=== PATIENT | male | born 1945 | race Caucasian/White ===

== ENCOUNTER 2021-12-31 14:26 | Outpatient (RCR) | payer MEDICARE, OTHER, SELFPAY | END 2022-02-01 09:29 | disposition home or self-care (01) | LOC: HO.WCC 14:26 | PROVIDERS: PCP Internal Medicine; Visit Provider Surgery | DX: I87.312 Chronic venous hypertension (idiopathic) with ulcer of left lower extremity (principal); L97.822 Non-pressure chronic ulcer of other part of left lower leg with fat layer exposed; I73.9 Peripheral vascular disease, unspecified; Z86.718 Personal history of other venous thrombosis and embolism | CPT/HCPCS: 11042; 29580; 29581; 97597; 99212; 99213 ==

== ENCOUNTER 2023-12-08 13:33 | Outpatient (AMB) | payer OTHER, SELFPAY ==
[2023-12-08 13:39] VITALS: BP 124/62; PULSE 64; O2SAT 92; BMI 28.0
--- NOTE | 2023-12-08 13:39 | MHC.OFFVIS ---
Intake Vital Signs 12/08/23 13:39 Height 6 ft 2 in Weight 218 lb 4.122 oz BMI 28.0 BP 124/62 Blood Pressure Location Lt brachial Position Sitting Pulse 64 Pulse Source Doppler Pulse Oximetry (%) 92 Oxygen Delivery Method Room Air Intake Visit Reasons: dyspnea Allergies No Known Allergies [No Known Allergies*] Allergy (Verified 12/08/23 13:41) HPI dyspnea HPI Details 78-year-old gentleman, nonsmoker, with exposure to asbestos in [place], with underlying pleural plaques, referred for evaluation of dyspnea on exertion that occurs intermittently, more so walking up stairs or hills. Patient had a CT scan at [facility] in August of 2023 showing some pleural plaques but no significant interstitial lung disease. He denies orthopnea or lower extremity edema. He has no prior personal or family history of lung disease. He does have a dog as a pet. [facility] Social History (Updated 12/08/23 @ 13:42 by Faviola Heath [facility]) Patient Tobacco Use Status: Never used Tobacco Tobacco use type: Cigarette Review of Systems Const Denies daytime sleepiness, Denies excessive sweating, Denies fatigue, Denies fever(s), Denies lethargy, Denies malaise, Denies night sweats, Denies snoring and Denies weight loss Eyes Denies blurry vision and Denies itchy eyes ENT Denies nasal congestion, Denies post nasal drip, Denies sinus pain, Denies sinus pressure and Denies other ( Thrush) Card Denies chest pain, Denies pedal edema, Denies dyspnea, Reports dyspnea on exertion, Denies orthopnea and Denies paroxysmal nocturnal dyspnea Resp Denies cough, Denies hemoptysis, Denies excessive phlegm production, Denies dyspnea, Reports dyspnea on exertion, Denies snoring and Denies wheezing GI Denies abdominal pain and Denies heartburn Musc Denies myalgias, Denies arthralgias and Denies joint swelling Skin/Breast Denies rash Neuro Denies memory loss and Denies seizure-like activity Psych Denies abnormal sleep pattern, Denies anxiety and Denies memory loss Endo Denies excessive sweating, Denies fatigue and Denies heat intolerance Alvarez/Lymph Denies easy bruising Aller/Immun Denies itchy eyes, Denies seasonal rhinorrhea and Denies wheezing Physical Exam Vital Signs: Last Vital Signs Pulse 64 12/08/23 13:39 BP 124/62 12/08/23 13:39 Pulse Ox 92 12/08/23 13:39 Oxygen Delivery Method Room Air 12/08/23 13:39 BMI result Body Mass Index 28.0 Const General: no acute distress and alert Nutritional Appearance: not obese Orientation/consciousness: Other orientation findings ( oriented) HEENT Head: Yes atraumatic Eyes General: appearance normal, both eyes and all related structures Sclerae: sclerae normal EOM: EOMs intact bilaterally Neck Neck: Yes supple Lymphatic: no lymphadenopathy noted Resp Effort & Inspection: normal respiratory effort and no use of accessory muscles Auscultation: clear to auscultation bilaterally Cardio Rate: regular rate Rhythm: regular rhythm Heart sounds: no gallops, no murmurs and no rubs Skin General skin exam: other ( warm) Extrem General: No clubbing, No cyanosis and No edema Assessment & Plan Assessment & Plan (1) Dyspnea on exertion: Code(s): R06.09 - Other forms of dyspnea Plan: Unclear etiology, may be multifactorial. Will obtain 2D echocardiogram to evaluate cardiac component. 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 Will obtain PFT for further evaluation. Coding Level of Care Code New Pt Level 4 (46959) Diagnoses Dyspnea on exertion R06.09 Asbestosis J61
== END 2023-12-08 14:10 | disposition home or self-care (01) ==
PROVIDERS: PCP Internal Medicine; Visit Provider Internal Medicine Pulmonary Disease
DX: R06.09 Other forms of dyspnea (principal); J61 Pneumoconiosis due to asbestos and other mineral fibers
CPT/HCPCS: 99204

== ENCOUNTER → 2023-12-08 13:33 | Outpatient (BNVA) | payer OTHER, SELFPAY | PROVIDERS: PCP Internal Medicine; Visit Provider Internal Medicine Pulmonary Disease | DX: R06.09 Other forms of dyspnea (principal); J61 Pneumoconiosis due to asbestos and other mineral fibers | CPT/HCPCS: 99202 ==

== ENCOUNTER 2024-01-19 08:50 | Outpatient (REF) | payer OTHER, SELFPAY ==
--- NOTE | 2020-01-19 09:10 | PFT_ITS ---
Indication: Dyspnea Spirometry [FEV1 FVC 75%; FEV1 3.14 L; FVC 4.2 L. No significant response to bronchodilators noted. Maximum voluntary ventilation 82% predicted] Lung Volumes [Total lung capacity 90% predicted] Diffusion Capacity [Diffusing capacity 94% predicted] Comparisons [none] Interpretation [No obstructive nor restrictive ventilatory defects identified. No significant response to bronchodilators noted. Normal lung volumes and normal diffusing capacity. If asthma is in the differential methacholine challenge may be helpful in assessing for hyperreactive airways. Clinical correlation warranted.] MTDD
[2024-01-19 11:25] VITALS: PULSE 68; RESP 14; O2SAT 96
== END 2024-01-19 08:51 | disposition home or self-care (01) ==
LOC: HO.RESP 08:50
PROVIDERS: PCP Internal Medicine; Visit Provider Internal Medicine Pulmonary Disease
DX: J61 Pneumoconiosis due to asbestos and other mineral fibers (principal); R06.00 Dyspnea, unspecified
CPT/HCPCS: 94010; 94640; 94727; 94729

== ENCOUNTER 2024-01-20 10:15 | Outpatient (AMB) | payer OTHER, SELFPAY ==
[2024-01-20 10:19] VITALS: BP 132/67; PULSE 59; O2SAT 95; BMI 28.6
--- NOTE | 2024-01-20 10:19 | A.OFFVIS_ITS ---
Intake Vital Signs 01/20/24 10:19 Height 6 ft 2 in Weight 222 lb 10.67 oz BMI 28.6 BP 132/67 Blood Pressure Location Lt brachial Position Sitting Pulse 59 Pulse Source Doppler Pulse Oximetry (%) 95 Oxygen Delivery Method Room Air Intake Visit Reasons: dyspnea Allergies No Known Allergies [No Known Allergies*] Allergy (Verified 01/20/24 10:23) HPI dyspnea HPI Details 78-year-old gentleman, nonsmoker, with e xposure to asbestos in [place], with underlying pleural plaques, referred for evaluation of dyspnea on exertion that occurs intermittently, more so walking up stairs or hills. Patient had a CT scan at [facility] in August of 2023 showing some pleural plaques but no significant interstitial lung disease. He denies orthopnea or lower extremity edema. He has no prior personal or family history of lung disease. He does have a dog as a pet. After the last office visit he completed his pulmonary function tests that is essentially normal. His 2D echocardiogram is still pending. [facility] Social History Patient Tobacco Use Status: Never used Tobacco Tobacco use type: Cigarette Review of Systems Const Denies daytime sleepiness, Denies excessive sweating, Denies fatigue, Denies fever(s), Denies lethargy, Denies malaise, Denies night sweats, Denies snoring and Denies weight loss Eyes Denies blurry vision and Denies itchy eyes ENT Denies nasal congestion, Denies post nasal drip, Denies sinus pain, Denies sinus pressure and Denies other ( Thrush) Card Denies chest pain, Denies pedal edema, Denies dyspnea, Reports dyspnea on exertion, Denies orthopnea and Denies paroxysmal nocturnal dyspnea Resp Denies cough, Denies hemoptysis, Denies excessive phlegm production, Denies dyspnea, Reports dyspnea on exertion, Denies snoring and Denies wheezing GI Denies abdominal pain and Denies heartburn Musc Denies myalgias, Denies arthralgias and Denies joint swelling Skin/Breast Denies rash Neuro Denies memory loss and Denies seizure-like activity Psych Denies abnormal sleep pattern, Denies anxiety and Denies memory loss Endo Denies excessive sweating, Denies fatigue and Denies heat intolerance Alvarez/Lymph Denies easy bruising Aller/Immun Denies itchy eyes, Denies seasonal rhinorrhea and Denies wheezing Physical Exam Vital Signs: Last Vital Signs Pulse 59 01/20/24 10:19 BP 132/67 01/20/24 10:19 Pulse Ox 95 01/20/24 10:19 Oxygen Delivery Method Room Air 01/20/24 10:19 BMI result Body Mass Index 28.6 Const General: no acute distress and alert Nutritional Appearance: not obese Orientation/consciousness: Other orientation findings ( oriented) HEENT Head: Yes atraumatic Eyes General: appearance normal, both eyes and all related structures Sclerae: sclerae normal EOM: EOMs intact bilaterally Neck Neck: Yes supple Lymphatic: no lymphadenopathy noted Resp Effort & Inspection: normal respiratory effort and no use of accessory muscles Auscultation: clear to auscultation bilaterally Cardio Rate: regular rate Rhythm: regular rhythm Heart sounds: no gallops, no murmurs and no rubs Skin General skin exam: other ( warm) Extrem General: No clubbing, No cyanosis and No edema Assessment & Plan Assessment & Plan (1) 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 Underlying CT chest also with no significant findings for asbestosis. Continue to monitor clinically. (2) Dyspnea on exertion: Code(s): R06.09 - Other forms of dyspnea Plan: Pulmonary workup so far is unrevealing. 2D echocardiogram is pending. If normal, will consider cardiopulmonary exercise testing versus exercise program. Coding Level of Care Code Est Pt Level 4 (50055) Diagnoses Asbestosis J61 Dyspnea on exertion R06.09
== END 2024-01-20 10:33 | disposition home or self-care (01) ==
PROVIDERS: PCP Internal Medicine; Visit Provider Internal Medicine Pulmonary Disease
DX: J61 Pneumoconiosis due to asbestos and other mineral fibers (principal); R06.09 Other forms of dyspnea
CPT/HCPCS: 99214

== ENCOUNTER → 2024-01-20 10:15 | Outpatient (BNVA) | payer OTHER, SELFPAY | PROVIDERS: PCP Internal Medicine; Visit Provider Internal Medicine Pulmonary Disease | DX: R06.09 Other forms of dyspnea (principal); J61 Pneumoconiosis due to asbestos and other mineral fibers; Z91.85 Personal history of military service | CPT/HCPCS: 99212 ==

== ENCOUNTER → 2024-01-23 09:46 | Outpatient (REF) | payer OTHER, SELFPAY ==
--- NOTE | 2024-01-23 09:48 | CA_ITS ---
Transthoracic Echocardiogram Patient (Last, First, Middle): Venkatesh Ansari R Gender: Male Date of : 1945 Age: 78 Procedure Date: 01/23/2024 Procedure Type: Transthoracic Echocardiogram Location: OP Height: 187. cm Weight: 95.26 kg BSA: 2.21 m2 Heart Rate: 53 bpm BP: 158 / 75 mmHg Verifying Specialist: NIURKA Referring MD: Edouard Arce MD Symptoms: R06.09 - Other forms of dyspnea Study Quality: Fair ECG Rhythm: Sinus Conclusions: - The left ventricular systolic function is normal. The calculated ejection fraction is 63% by biplane method. - No obvious valvular pathology seen on this study. - There is mild dilatation of the ascending aorta measuring 4.20 cm. Findings Left Ventricle Normal left ventricular cavity size. There is mildly increased left ventricular wall thickness. The left ventricular systolic function is normal. The calculated ejection fraction is 63% by biplane method. There is no evidence of regional wall motion abnormalities. Diastolic function is normal for age. LV peak GLS measurement not accurate. Right Ventricle Mildly increased right ventricular cavity size. There is normal right ventricular systolic function. Atria Both atria are normal in size. Aortic Valve There is a normal trileaflet aortic valve. There is no aortic valve stenosis. There is no aortic valve regurgitation. Mitral Valve The mitral valve appears normal. There is no mitral valve regurgitation. There is no mitral valve stenosis. Pulmonic Valve The pulmonic valve is likely normal. Tricuspid Valve Normal tricuspid valve structure. There is no tricuspid valve regurgitation. There is no evidence of pulmonary hypertension. Great Vessels There is mild dilatation of the ascending aorta measuring 4.20 cm. Venous The inferior vena cava is normal in size and collapses greater than 50% with inspiration. Pericardium/Pleural There is no evidence of pericardial effusion. Prior Study Comparison No prior study available for comparison. Recommendations, Care & Conclusions No obvious valvular pathology seen on this study. Measurements 2D Linear Measurements IVSd: 1.21 0.6-0.9/0.6-1.0 cm LVIDd: 4.34 3.9-5.3/4.2-5.9 cm LVIDd Index: 1.96 2.4-3.2/2.2-3.1 cm/m2 LVIDs: 1.90 2.0-3.6 cm LVPWd: 1.14 0.7-1.1 cm LA Diam: 4.60 2.7-3.8/3.0-4.0 cm LAIDs Index: 2.08 1.5-2.3 cm/m2 LV Mass: 226.38 67-162/88-224 g LV Mass Index: 102.43 43-95/49-115 g/m2 LVOT Diam: 2.10 3.0+(-)1.3 cm 2D Systolic Function EF 4C: 55.70 >55% EF 2C: 67.50 >55% EF BiP: 62.70 >55% Mitral Valve MV Pk E: 0.91 MV PK A: 0.57 MV Decel Time: 207.00 E/A: 1.60 E'Lateral: 8.27 E'Medial: 6.53 E/E' Med: 13.90 E/E' Lat: 11.00 PHT: 61.00 MVA PHT: 3.61 Decel Florence: 4.38 Aortic Valve AoV Pk Roberto: 1.08 AoV Mn Roberto: 0.83 AoV VTI: 0.31 AoV Pk Grad: 5.00 Aov Mn Grad: 3.00 LALITA Cont.VTI: 3.18 LVOT LVOT Pk Roberto: 1.05 LVOT Mn Roberto: 0.76 LVOT VTI: 0.28 LVOT Pk Grad: 4.00 LVOT Mn Grad: 3.00 LVOT Diam: 2.10 LVOT Area: 3.46 Diastolic Function MV Pk E: 0.91 MV Pk A: 0.57 E/A: 1.60 E'Medial: 6.53 E/E' Med: 13.90 E' Laterial: 8.27 E/E' Lat: 11.00 Right Ventricle TAPSE (mm): 23.80 TVS' Roberto: 12.80 Tricuspid Valve TR Pk Roberto: 1.75 TR Pk Grad: 12.00 RA Press: 3.00 RVSP: 15.00 Great Vessels Aorta Sinus of Valsalva: 3.80 2.0-3.5 cm Ao Asc: 4.20 2.1-3.4 cm Pulmonary Valve PV Pk Roberto: 1.07 Peak PV Grad: 5.00 Updated in Other Vendor System with Status of Final Mayo Castañeda MD electronically signed on 01/24/2024 10:43:53 AM with status of Final
== END ==
LOC: HO.CARD 09:46
PROVIDERS: PCP Internal Medicine; Visit Provider Internal Medicine Pulmonary Disease
DX: R06.09 Other forms of dyspnea (principal)
CPT/HCPCS: 93306

== ENCOUNTER → 2024-01-23 09:48 | Outpatient (BNV) | payer OTHER, SELFPAY | PROVIDERS: PCP Internal Medicine; Visit Provider Internal Medicine | DX: I77.810 Thoracic aortic ectasia (principal); R06.09 Other forms of dyspnea | CPT/HCPCS: 93306; 93356 ==

== ENCOUNTER 2024-08-08 08:54 | Outpatient (AMB) | payer OTHER, SELFPAY ==
[2024-08-08 08:55] VITALS: BMI 28.5
--- NOTE | 2024-08-08 08:55 | MHC.OFFVIS ---
Vital Signs 08/08/24 08:55 Height 6 ft 2 in Weight 222 lb BMI 28.5 Intake Visit Reasons: Right knee pain Intake Note: Venkatesh is a 79 year old male who presents with complaints of pain along the medial aspect of his right knee. The patient states that several months ago he was locking his storage unit when he twisted his right knee and had acute onset of pain along the medial aspect of his knee. Since that time his pain has gotten worse. He did undergo right total knee replacement surgery several years ago. He denies any fevers or chills. He has tried Tylenol and Celebrex which gave him mild relief. Allergies No Known Allergies [No Known Allergies*] Allergy (Verified 08/08/24 08:55) Medication List - Last Reconciled 08/08/24 by Branden Lafleur MD atorvastatin 20 mg PO DAILY celecoxib 200 mg PO DAILY chlorthalidone 25 mg PO DAILY citalopram 20 mg PO DAILY ezetimibe 10 mg PO DAILY tamsulosin 0.4 mg PO DAILY warfarin 5 mg PO DAILY PFSH Social History Patient Tobacco Use Status: Never used Tobacco Tobacco use type: Cigarette Physical Exam Vital Signs: BMI result Body Mass Index 28.5 Const Other: Well-nourished well-developed very friendly male awake alert and oriented x3 in no acute distress Extrem Other: Bilateral lower extremity examination shows good capillary refill, no skin lesions noted, normal sensation light touch Right knee examination shows that the surgical incision is well healed, no erythema, mild discomfort with range of motion from -3 degrees to 115 degrees, tenderness over his medial collateral ligament, no overlying skin lesions Results Reviewed Results Reviewed: X-rays of the patient's right knee show a total knee arthroplasty with no obvious signs of loosening, no obvious acute bony abnormalities Assessment & Plan Assessment & Plan (1) Right knee pain: Code(s): M25.561 - Pain in right knee Category: Medical (2) MCL sprain of right knee: Code(s): S83.411A - Sprain of medial collateral ligament of right knee, initial encounter Category: Medical Plan Mr. Ansari presents with right knee pain after undergoing right total knee replacement surgery several years ago of unclear etiology. Thus, I will send the patient for a CT scan of his right knee for further evaluation. I also gave him a prescription for tramadol to help with his pain in the meantime. He will continue taking Celebrex as well. I also gave the patient a prescription to go to formal physical therapy. He will contact me prior to his follow-up appointment in 6-8 weeks should any questions or concerns arise. Feel free to call me at any time should questions regarding his orthopedic management arise. I spent 21 minutes in reviewing the patient's records and imaging studies, seeing the patient and documenting in the medical record. Orders: Orders XR knee RT 3V Today M25.561 - Pain in right knee PT Evaluation and Treatment Today S83.411A - Sprain of medial collateral ligament of right knee, initial encounter CT knee RT wo IV con Today M25.561 - Pain in right knee Medications: New tramadol 50 mg PO Q12H PRN 60 tabs 0RF pain Coding Level of Care Code Est Pt Level 3 (66893) Complex EM visit Add On G2211 Diagnoses Right knee pain M25.561 MCL sprain of right knee S83.411A
== END 2024-08-08 09:34 | disposition home or self-care (01) ==
PROVIDERS: PCP Internal Medicine; Visit Provider Orthopaedic Surgery
DX: M25.561 Pain in right knee (principal); S83.411A Sprain of medial collateral ligament of right knee, initial encounter
CPT/HCPCS: 99213; G2211

== ENCOUNTER 2024-08-08 14:02 | Outpatient (REF) | payer OTHER, SELFPAY ==
--- NOTE | ~2024-08-08 | XR_ITS ---
EXAMINATION: XR KNEE, RIGHT CLINICAL INFORMATION: M25.561 - Pain in right knee COMPARISON: Radiographs 09/27/2026 TECHNIQUE: Three views of the right knee. FINDINGS: The total knee arthroplasty components are in the usual position and alignment without evidence of loosening or fracture. There is a small joint effusion. There is a chronic ossification at the tip of the patellar apex. XR/XR knee RT 3V IMPRESSION: No evidence of hardware failure or acute fracture. Small joint effusion. Small chronic ossification at the tip of the patellar apex was not present on the previous study. This may be degenerative, or a remote, ununited avulsion fracture. Electronically signed by: Jaxson Betancourt MD 09/29/2024 03:41 PM RUTHIE
== END 2024-08-08 14:03 | disposition home or self-care (01) ==
LOC: HO.HOSX 14:02
PROVIDERS: Visit Provider Orthopaedic Surgery
DX: M25.561 Pain in right knee (principal); S83.411A Sprain of medial collateral ligament of right knee, initial encounter
CPT/HCPCS: 73562; 99212

== ENCOUNTER 2024-09-24 07:44 | Outpatient (REF) | payer OTHER, SELFPAY ==
--- NOTE | ~2024-09-24 | CT_ITS ---
EXAMINATION: CT KNEE WITHOUT CONTRAST, RIGHT CLINICAL INFORMATION: Right knee pain COMPARISON: Radiographs 08/08/2024 TECHNIQUE: A noncontrast CT of the right knee is performed with sagittal and coronal reformats. This CT examination was performed using dose optimization techniques as appropriate, variously including the following: *Automated exposure control *Adjustment of mA and/or kV according to patient size (this includes techniques or standardized protocols for targeted exams where dose is matched to indication/reason for exam; i.e. extremities or head) *Use of iterative reconstruction technique DLP: 153 mGy-cm FINDINGS: There is metal artifact related to the total knee arthroplasty. However, no osteolysis is apparent to indicate loosening. The arthroplasty components are in the usual position and alignment. There is no fracture. There is a small joint effusion. There is a chronic ossification distal to the patellar apex and enthesopathy of the tibial tubercle. CT/CT knee RT wo IV con IMPRESSION: No acute osseous abnormality or evidence of loosening. Small joint effusion. Electronically signed by: Jaxson Betancourt MD 09/29/2024 03:37 PM EST
== END 2024-09-24 07:45 | disposition home or self-care (01) ==
LOC: HO.CT 07:44
PROVIDERS: PCP Internal Medicine; Visit Provider Orthopaedic Surgery
DX: M25.561 Pain in right knee (principal)
CPT/HCPCS: 73700

== ENCOUNTER 2024-10-09 11:02 | Outpatient (AMB) | payer OTHER, SELFPAY ==
--- NOTE | 2024-10-09 11:03 | MHC.OFFVIS ---
Vital Signs 10/09/24 11:04 Height 6 ft 2 in Weight 222 lb BMI 28.5 Intake Visit Reasons: Right knee pain Intake Note: Venkatesh is a 79 year old male who presents with complaints of intermittent discomfort along the medial aspect of his right knee. The patient did aggravate his knee several months ago while working on his motorcycle. He denies any fevers or chills. He does wear a knee brace which gives him fairly good relief. Allergies No Known Allergies [No Known Allergies*] Allergy (Verified 10/09/24 11:04) Medication List - Last Reconciled 10/09/24 by Branden Lafleur MD atorvastatin 20 mg PO DAILY celecoxib 200 mg PO DAILY chlorthalidone 25 mg PO DAILY citalopram 20 mg PO DAILY ezetimibe 10 mg PO DAILY tamsulosin 0.4 mg PO DAILY warfarin 5 mg PO DAILY PFSH Social History Patient Tobacco Use Status: Never used Tobacco Tobacco use type: Cigarette Physical Exam Vital Signs: BMI result Body Mass Index 28.5 Const Other: Well-nourished well-developed very friendly male awake alert and oriented x3 in no acute distress Extrem Other: Bilateral lower extremity examination shows good capillary refill, no skin lesions noted, normal sensation light touch Right knee examination shows that the surgical incision is well healed, no erythema, full active extension and flexion to 120 degrees, his patella tracks well, tenderness along his medial collateral ligament, no instability Results Reviewed Results Reviewed: CT scan of the patient's right knee shows a total knee arthroplasty in good position with no signs of loosening, no acute bony abnormalities Assessment & Plan Assessment & Plan (1) Right knee pain: Code(s): M25.561 - Pain in right knee Category: Medical Plan Mr. Ansari presents with intermittent right knee discomfort most likely due to strain of his medial collateral ligament. I had a lengthy discussion with the patient regarding the treatment options. At this point the patient's symptoms continue to improve with non operative treatments. Activity modifications were discussed at length with the patient. He will follow up with me on an as-needed basis should his symptoms not plateau at an unacceptable level over the next few months. Feel free to call me at any time should questions regarding his orthopedic management arise. I spent 20 minutes in reviewing the patient's records and imaging studies, seeing the patient and documenting in the medical record. Coding Level of Care Code Est Pt Level 3 (12560) Complex EM visit Add On G2211 Diagnoses Right knee pain M25.561
[2024-10-09 11:04] VITALS: BMI 28.5
--- OUTSIDE RECORDS SUMMARY | 2024-10-16 13:02 | XMS_ITS | Encounter Summary ---
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 This section includes the names of all active insurance providers for the patient. Insurance Provider Type of Coverage Plan Name Start of Policy Coverage End of Policy Coverage Group Number Member ID Insurance Provider's Telephone Number Policy Dowling's Name Patient's Relationship to Policy Dowling MEDICARE (WNR) MEDICARE (M) PART B Sep 07, 2010 PART B [id number] [facility] [facility] PATIENT MEDICARE (WNR) MEDICARE (M) PART A Jun 07, 2010 PART A [id number] [place] [employer] PATIENT UNICARE INCOME PROTECTIO N (INDEMNIT Y) [place] RE STATE INDEM N Sep 07, 2010 [id number] BLAISE DUMONTPIOTR SPOUSE Selected Encounter This section includes the information on record at [place] for the Encounter. Date/Time Encounter Type Encounter Description Reason Pro vider Source Dec 05, 2023 01:30 PM Outpatient Encounter PRIMARY CARE/MEDICINE IHE Encounter Template Text not used by [place] Plan of Treatment: Future Appointments (+ 6 months) and Future Tests (+/- 45 days) The Plan of Treatment section includes future care activities [facility] the [facility] [place] [facility] This section includes future appointments and future orders which are active, pending or scheduled. Future Appointments This section includes appointments that were scheduled to occur 6 months from the date of the Encounter, up to a maximum of 20 appointments. The data comes from all [place] treatment facilities. Appointment Date/Time Appointment Type Appointme nt Facility Name Dec 08, 2023 01:45 PM AM[place]ULATORY [place]ICINE [place] [facility] [place] [facility] Jan 13, 2024 09:30 AM [facility] Feb 03, 2024 02:30 PM [facility] April 04, 2024 02:30 PM AMBULATORY - REHAB MEDICIN [facility] [place] [facility] Apr 13, 2024 10:00 AM [facility] May 09, 2024 09:30 AM AMBULATORY - RE[facility]AB MEDICIN [facility] [place] [facility] May 09, 2024 10:30 AM [facility] Social History: Smoking Status (Most current) and Tobacco Use (All prior to encounter date) This section includes the most current, and the historical, smoking and tobacco- related health factors from the [place] facility where the Encounter took place. Current Smoking Status This section includes the most current smoking, or tobacco-related health factor, from the [place] facility where the Encounter took place. Date/Time Current Smoking Status Comment [place] aragon Jun 06, 2023 02:00 PM VA-TOBACCO NEVER USED [place] Encounter Notes: All associated encounter notes This section contains the clinical notes associated to the Encounter. Date/Time Encounter Note(s) Provider Source Dec 01, 2023 01:29 PM ADMINISTRATIVE NOT E: LOCAL TITLE: ADMINISTRATIVE NOTE STANDARD TITLE: ADMINISTRATIVE NOTE DATE OF NOTE: DEC 01, 2023@13:29 ENTRY DATE: DEC 01, 2023@13:29:19 AUTHOR: JENNYFER GARZA EXP COSIGNER: URGENCY: STATUS: COMPLETED This is a reminder call for your upcoming PCP appt with ROGELIO SEN and the need for a lab appointment for bloodwork prior to your upcoming appt. Fasting blood work NON fasting blood work (X)NO BLOODWORK needed for appt Bloodwork already completed Action taken: [ ] Called , left voice message [ ] Called , unable to leave voice mail [X] Spoke to /intensive care nurse to remind them of upcoming appt/bloodwork Upcoming Appointments: 12/05/2023 13:30 CWM/SO/PACT 2 12/08/2023 13:45 COM CARE-PULMONARY 10/29/2024 10:00 NHM/OPTOMETRY/MARCELA /es/ [facility] Signed: 12/01/2023 13:29 JENNYFER GARZA [place]
--- OUTSIDE RECORDS SUMMARY | 2024-10-16 13:02 | XMS_ITS ---
Author Name [facility] [place] Organization [place] Address [address] [place] [address] Care Team Providers Care Manager Search Name Role Phone KERON NASH Primary Care Provider Catalina adan Insurance Providers: All historical and current Section [...] PART B Sep 07, 2010 PART B [id number] PARTH DUMONT PHEN PATIENT MEDICARE (WNR) MEDICARE (M) PART A Jun 07, 2010 PART A [id number] [phone] [id number] JULIA,PARTH PHEN PATIENT UNICARE INCOME PROTECTIO N (INDEMNIT Y) [place] RE STATE INDEM N Sep 07, 2010 [id number] BLAISE DUMONT SPOUSE Selected Encounter This section includes the information on record at [place] for the Encounter. Date/Time Encounter Type Encounter Description Reason Provider Source Nov 01, 2023 09:16 AM FIT SPECTACLES MULTIFOCAL OPTOMETRY ICD-10-CM Z46.0 Encounter for fit/adjst of spectacles and contact lenses COCO MEDRANO Encounter Template Text not used by [place] Assessments - Encounter Diagnoses This section includes the primary and secondary diagnoses documented for the Encounter. Date/Time Primary/Secondary Diagnosis Diagnosis Name Provider Source Nov 01, 2023 09:16 AM PRIMARY Encounter for fit/adjst of spectacles and contact lenses JIMENA WANG [facility] Plan of Treatment: Future Appointments (+ 6 months) and Future Tests (+/- 45 days) The Plan of Treatment section includes future care activities for the [facility] [place] [facility] This section includes future appointments and future orders which are active, pending or scheduled. Future Appointments This section includes appointments that were scheduled to occur 6 months from the date of the Encounter, up to a maximum of 20 appointments. The data comes from all [place] treatment facilities. Appointment Date/Time Appointment Type Appointme nt Facility Name Nov 18, 2023 02:00 PM AMBULATORY - MEDICINE [facility] Dec 08, 2023 01:45 PM AMBULATORY MEDICINE [facility] Jan 13, 2024 09:30 AM AM[facility]ULATORY - MEDICINE [facility] Feb 03, 2024 02:30 PM AMBULATORY - MEDICINE [facility] April 04, 2024 02:30 PM AMBULATORY - REHAB MEDICIN E [facility] Apr 13, 2024 10:00 AM AMBULATORY - MEDICINE [facility] Encounter Notes: All associated encounter notes This section contains the clinical notes associated to the Encounter. Date/Time Encounter Note(s) Provider Source Nov 01, 2023 09:16 AM OPTOMETRY NOTE: LOCAL TITLE: OPTOMETRY NOTE STANDARD TITLE: OPTOMETRY NOTE DATE OF NOTE: NOV 01, 2023@09:16 ENTRY DATE: NOV 01, 2023@09:16:30 AUTHOR: AMY JOSHI EXP COSIGNER: URGENCY: STATUS: COMPLETED OPTOMETRY NOTE Has ADDENDA prog clear The quote provided below is for informational purposes only. Please verify prior to the creation of a purchase order. DENISSE DUMONT 3780 RX INFORMATION OD +3.75 -1.00 X115 Add:+2.50 Pzm:0.00 Dir: Prz2:0.00 Dir2: OS +3.25 -1.00 X64 Add:+2.50 Pzm:0.00 Dir: Prz2:0.00 Dir2: FITTING INFORMATION FPD: NPD: [place]:R:33.5 L:35.0 SEG HT:R:25 L:25 Tint:None Shade:None VA Billable Items FRAME: BIG BEAT LOPEZ [id number] Right Lens: POLY VA PROGRESSIVE 1.586 POLY Left Lens: POLY VA PROGRESSIVE 1.586 POLY KLEAR ANTI-REFLECTIVE COATING prog sun lopez The quote provided below is for informational purposes only. Please verify prior to the creation of a purchase order. DENISSE DUMONT 3780 RX INFORMATION OD +3.75 -1.00 X115 Add:+2.50 Pzm:0.00 Dir: Prz2:0.00 Dir2: OS +3.25 -1.00 X64 Add:+2.50 Pzm:0.00 Dir: Prz2:0.00 Dir2: FITTING INFORMATION FPD: NPD: [place]:R:33.5 L:35.0 SEG HT:R:27 L:27 Tint:RAMSEY Shade:3 VA Billable Items FR[facility] [id number] Right Lens: POLY VA PROGRESSIVE 1.586 POLY Left Lens: POLY VA PROGRESSIVE 1.586 POLY KLEAR ANTI-REFLECTIVE COATING SOLID TINT /rupinder/ AMY JOSHI WOOD BUFFER Signed: 11/01/2023 09:17 Receipt Acknowledged By: 11/02/2023 13:40 /rupinder/ [facility] 11/02/2023 ADDENDUM STATUS: 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 OPT HT entered consult(s) as requested for provider signature. /rupinder/ JIMENA [facility] Signed: 11/02/2023 13:42 AMY JOSHI [facility] [place] [facility]
--- OUTSIDE RECORDS SUMMARY | 2024-10-16 13:02 | XMS_ITS ---
Author Name [facility] [place] [facility] [place] Address [address] [place] [address] Care Team Providers Care Operations Label Clerk Name Role Phone KERON NASH Primary Care [...] PART B Sep 07, 2010 PART B [id number] [id number] PARTH DUMONT PHEN PATIENT MEDICARE (WNR) MEDICARE (M) PART A Jun 07, 2010 PART A [id number] PARTH DUMONT PHEN PATIENT UNICARE INCOME PROTECTIO N (INDEMNIT Y) [place] RE STATE INDEM N Sep 07, 2010 [id number] BLAISE DUMONT SPOUSE Selected Encounter This section includes the information on record at [place] for the Encounter. Date/Time Encounter Type Encounter Description Reason Provider Source Nov 18, 2023 02:00 PM RPR&REFITG SPECT XCP APHAKIA OPTOMETRY ICD-10-CM Z46.0 Encounter for fit/adjst of spectacles and contact lenses MONIKA MORRIS [facility] Encounter Template Text not used by [place] Assessments - Encounter Diagnoses This section includes the primary and secondary diagnoses documented for the Encounter. Date/Time Primary/Secondary Diagnosis Diagnosis Name Provider Source Nov 18, 2023 02:07 PM PRIMARY Encounter for fit/adjst of spectacles and contact lenses [facility]IKA [facility]ORRIS [facility] Plan of Treatment: Future Appointments (+ 6 months) and Future Tests (+/- 45 days) The Plan of Treatment section includes future care activities for the patient from all [place] treatmentfacilities. This section includes future appointments and future orders which are active, pending or scheduled. Future Appointments This section includes appointments that were scheduled to occur 6 months from the date of the Encounter, up to a maximum of 20 appointments. The data comes from all [place] treatment facilities. Appointment Date/Time Appointment Type Appointme nt Facility Name Dec 08, 2023 01:45 PM AMBULATORY - MEDICINE [facility] [place] [facility] Jan 13, 2024 09:30 AM AM[facility]ULATORY - MEDICINE [facility] Feb 03, 2024 02:30 PM AMBULATORY - MEDICINE [facility] April 04, 2024 02:30 PM AMBULATORY - REHAB MEDICIN E [place] CNTRL [facility] [place] [facility] Apr 13, 2024 10:00 AM AMBULATORY - MEDICINE [facility] May 09, 2024 09:30 AM AMBULATORY - REHAB MEDICIN E [place] [facility]L [facility] [place] [facility] May 09, 2024 10:30 AM [facility] Encounter Notes: All associated encounter notes This section contains the clinical notes associated to the Encounter. Date/Time Encounter Note(s) Provider Source Nov 18, 2023 02:07 PM OPTOMETRY NOTE: LOCAL TITLE: OPTOMETRY NOTE STANDARD TITLE: OPTOMETRY NOTE DATE OF NOTE: NOV 18, 2023@14:07 ENTRY DATE: NOV 18, 2023@14:07:32 AUTHOR: MONIKA MORRIS EXP COSIGNER: URGENCY: STATUS: COMPLETED OPT HT & OPT Student fit and adjusted 1 pair(s) of eyeglasses per patient request. /rupinder/ Monika [facility] Signed: 11/18/2023 14:07 MONIKA MORRIS CN[facility]L [facility]
--- OUTSIDE RECORDS SUMMARY | 2024-10-16 13:02 | XMS_ITS ---
Author Name [facility] [place] Organization [place] Address [address] [place] [address] Care Team Providers Care Brake Operator Heavy Duty Name Role Phone KERON NASH Primary Care [...] PART B Sep 07, 2010 PART B [id number] [id number] 2 PARTH DUMONT PHEN PATIENT MEDICARE (WNR) MEDICARE (M) PART A Jun 07, 2010 PART A [id number] PARTH DUMONT PHEN PATIENT UNICARE INCOME PROTECTIO N (INDEMNIT Y) [place] RE STATE INDEM N Sep 07, 2010 [id number] BLAISE DUMONT SPOUSE Selected Encounter This section includes the information on record at [place] for the Encounter. Date/Time Encounter Type Encounter Description Reason Provider Source Oct 28, 2023 10:00 AM EYE EXAM&TX ESTAB PT 1/>VST OPTOMETRY ICD-10-CM H25.013 Cortical age-related cataract, bilateral COCO MEDRANO [place] Encounter Template Text not used by [place] Assessments - Encounter Diagnoses This section includes the primary and secondary diagnoses documented for the Encounter. 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 This section includes future appointments and future orders which are active, pending or scheduled. Future Appointments This section includes appointments that were scheduled to occur 6 months from the date of the Encounter, up to a maximum of 20 appointments. The data comes from all [place] treatment facilities. Appointment Date/Time Appointment Type Appointme nt Facility Name Nov 18, 2023 02:00 PM AMBULATORY - MEDICINE [facility] [place] [facility] Dec 08, 2023 01:45 PM AMBULATORY - MEDICINE [facility] [place] [facility] Jan 13, 2024 09:30 AM [facility] Feb 03, 2024 02:30 PM [facility] [place] [facility] [place] April 04, 2024 02:30 PM AMBULATORY - REHAB MEDICIN E [place] [facility] [place] [facility] Apr 13, 2024 10:00 AM AMBULATORY - MEDICINE [facility] Encounter Notes: All associated encounter notes This section contains the clinical notes associated to the Encounter. Date/Time Encounter Note(s) Provider Source Oct 28, 2023 10:47 AM OPTOMETRY NOTE: LOCAL TITLE: OPTOMETRY NOTE(T) STANDARD TITLE: OPTOMETRY NOTE DATE OF NOTE: OCT 28, 2023@10:47 ENTRY DATE: OCT 28, 2023@10:47:30 AUTHOR: COCO MEDRANO EXP COSIGNER: URGENCY: STATUS: COMPLETED I saw this patient in conjunction with the student and agree to the stated findings and plan after reviewing both history and repeating bella elements of physical exam. Patient presents for initial comprehensive exam at the [place] with history of myasthenia gravis without ocular presentation. It was diagnosed about 5 years ago at [facility] and mainly involve speech and swallowing difficulty. Otherwise he denies any history of eye injury or disease. He wears PAL. No acute ocular disease was seen today. Ordered new PAL. The patient will return in 12 months or sooner if any problems arise. /rupinder/ COCO MEDRANO OD STAFF INSPECTOR BARREL Signed: 10/28/2023 10:53 COCO MEDRANO [place] [facility] [place] [facility] Oct 28, 2023 09:47 AM OPTOMETRY NOTE: LOCAL TITLE: OPTOMETRY NOTE STANDARD TITLE: OPTOMETRY NOTE DATE OF NOTE: OCT 28, 2023@09:47 ENTRY DATE: OCT 28, 2023@09:48:01 AUTHOR: MARGO ENGEL COSIGNER: COCO MEDRANO URGENCY: STATUS: COMPLETED OPTOMETRY NOTE Has ADDENDA Active problems - Computerized Problem List is the source for the followin. Interstitial lung disease 2. Exposure to potentially hazardous substance 3. HTN-Hypertension ([facility] [id number]) 4. Hyperlipidemia ([facility] [id number]) 5. Factor V Leiden mutation 6. Chronic deep venous thrombosis of lower extremity 7. Sensorineural hearing loss, bilateral 8. Tinnitus ([facility] [id number]) 9. Allergic Rhinitis ([facility] [id number]) 10. Obstructive sleep apnea Active Outpatient Medications (including Supplies): No Medications Found Allergies: Patient has answered NKA All medications including those prescribed by outside VA's, community providers, and all OTC meds were reviewed and reconciled with patient to the best of their abilities. This 78 year old MALE is seen today for routine eye exam. Chief Complaint: Vision has been getting blurry, worse at night. Difficulty with glare at night. Issue with itchiness of eyes, feels better when rubs eyes. Last Eye Exam: 2-3 years ago OHx: 1. Myasthenia gravis 2. RE and presbyopia OU 3. Cataracts OU (-) Pain: (-) TRAVIS: (+) Diplopia: intermitently, mostly due to MG. Not common (-) Flashes: (+) Floaters: more often (-) Amaurosis Fugax/Tia's: (-) Eye Injury: (-) Eye Surgery: (-) TBI FOHx: (-) Glaucoma/ARMD/Blindness Social Hx: (-) Smoker/Length of Time/PPD: Pupils: PERRL (-)APD EOMs: SAFE OU, (-)Pain/Diplopia CVF (facial, peripheral): FTFC OU Current Rx with last BCVA: OD: +3.75 -1.00 x115 20/20 OS: +3.25 -1.00 x064 20/20 Add: +2.75 DVA ( )sc ( x )cc OD: 20/20 OS: 20/25+2 Subjective Refraction: BCVA: OD: +3.75 -1.00 x115 20/20 OS: +3.25 -1.00 x064 20/25+2 Add: +2.50 All the above performed by student, reviewed by attending Anterior segment: Performed by student, repeated by attending Lids: mild dermatochalasis OU inferior Lower lid is irregular OS Conj: pinguecula T OU Sclera: white OU Cornea: mild spk OU AC: 4x4 OU deep & quiet OU Iris: flat and clear OU (-)NVI OU (-)TID OU Lens: NS +1 OU and PCC +2 OS>OD (-)PXF OU Tonometry: Goldmann Aplanation Performed by student, reviewed by attending OD 15 mmHg OS 16 mmHg Time: 10:10 am Fundus exam: Dilated: x Non dilated: Dilating Drops: 1GTT 1 % Tropicamide OU & 1GTT 2.5% Phenylephrine OU (Pt. ed. on side effects, dilation warning given and verbal consent obtained) Patient advised not to drive if they feel they have any symptoms which could affect their ability to drive safely. Patient advised not to engage in any activities which could put themselves or others at risk if they feel they have any symptoms which could affect their ability to perform those activities safely. Performed by student, repeated by attending Vit: small PVD OU C/D: 0.30/0.30 OD, 0.35/0.35 OS rim tissue is pink and healthy OU (-)NVD OU (-)drance hemes/notching OU Macula: flat and clear OU PPole: clear A/V: 2/3 OU Vessels: normal caliber OU Periph: mild degeneration inferior quadrants (-) NVE/holes/tears/detachment s 360 OU Assesment and Plan: 1. Hypermetropia, astigmatism and presbyopia Patient was educated on diagnosis. New Rx was order. Monitor yearly. 2. Combined cataracts OU Patient was educated and understanding on findings. Cataracts were not visually significant, but he was reccomended to use UV protection to avoid rapid progression. Monitor yearly. 3. Myasthenia Gravis History Patient was educated on diagnosis. Eye muscles appears stable, did not present deviation. Patient says he used prednisone for about a year and a half, hasn't had any episode ever since. Continue moniotring during next CEE. Return to Clinic 1 year or earlier PRN Education: After discussion and answering all 's questions, demonstrated and verbalized understanding of diagnosis and treatment. Yes [x] No [ ] EYE: Visual Function Reminder: Normal Vision: 20/25 or better: Unspecified disorder of refraction or accommodation (367.9). Medication Reconciliation: Outpatient: Has the patient been taking medications as documented in the EMLR? YES: The patient has been taking medications as documented in the EMLR. Essential Medication List for Review used to complete this medication reconciliation. INCLUDED IN THIS LIST: Alphabetical list of active outpatient prescriptions dispensed from this VA (local) and dispensed from another VA or [facility] facility (remote) as well as inpatient orders (local, pending and active), local clinic medications, locally documented non-VA medications, and local prescriptions that have or been discontinued in the past 90 days. - All changes in medications, including all non-VA/Herbal/OTC medications were entered into CPRS. - If there were any medications the patient should no longer take, they were discontinued. - The patient/caregiver was instructed to update this list, discard old lists, and take this list to the next appointment, whether with a VA or non-VA provider. /rupinder/ RENO PERRY OPTOMETRY STUDENT Signed: 10/28/2023 10:56 /rupinder/ COCO MEDRANO OD STAFF INSPECTOR BARREL Cosigned: 10/28/2023 11:23 11/25/2023 ADDENDUM STATUS: COMPLETED Hypermetropia, astigmatism and presbyopia is bilateral. /rupinder/ COCO MEDRANO OD STAFF INSPECTOR BARREL Signed: 11/25/2023 08:00 RENO ENGEL [facility]
--- OUTSIDE RECORDS SUMMARY | 2024-10-16 13:03 | XMS_ITS ---
Author Name [facility] [place] Organization [place] Address [address] [place] [address] Care Team Providers Care Sewage Plant Operator Name Role Phone KERON NASH Primary Care [...] PART B Sep 07, 2010 PART B [id number] PARTH DUMONT PHEN PATIENT MEDICARE (WNR) MEDICARE (M) PART A Jun 07, 2010 PART A [id number] JULIAPARTH PHEN PATIENT UNICARE INCOME PROTECTIO N (INDEMNIT Y) [place] RE STATE INDEM N Sep 07, 2010 [id number] BLAISE DUMONTPIOTR SPOUSE Selected Encounter This section includes the information on record at [place] for the Encounter. Date/Time Encounter Type Encounter Description Reason Pro vider Source Jan 20, 2024 12:00 PM Outpatient Encounter COMMUNITY CARE CONSULT IHE Encounter Template Text not used by [place] Plan of Treatment: Future Appointments (+ 6 months) and Future Tests (+/- 45 days) The Plan of Treatment section includes future care activities for the patient from all [place] treatmentfacilities. This section includes future appointments and future orders which are active, pending or scheduled. Future Appointments This section includes appointments that were scheduled to occur 6 months from the date of the Encounter, up to a maximum of 20 appointments. The data comes from all [place] treatment facilities. Appointment Date/Time Appointment Type Appointme nt Facility Name Feb 03, 2024 02:30 PM AMBULATORY - MEDICINE [facility] April 04, 2024 02:30 PM AMBULATORY - REHAB MEDICIN [facility] [place] [facility] Apr 13, 2024 10:00 AM [facility] May 09, 2024 09:30 AM AMBULATORY - REHAB MEDICIN E [facility] [place] [facility] May 09, 2024 10:30 AM AMBULATORY - REHAB MEDICIN E [facility] [place] [place] [facility] Jun 20, 2024 09:00 AM AMBULATORY - MEDICINE [facility] Jul 18, 2024 09:15 AM [facility] [place] [facility] Lab Results: +/- 30 days of the encounter This section includes the Chemistry and Hematology Lab Results on record with [place] for the patient. Radiology Reports and Pathology Reports are provided separately, in subsequent sections. Lab Results This section contains the Chemistry/Hematology Results that were resulted 30 days before or 30 daysafter the date of the Encounter. Date/Time Source Result Type Result - Unit Interpretation Reference Range Comment Jan 13, 2024 10:38 AM [facility] HEMOGLOBIN A1C PANEL Specimen Type: BLOOD Comment: Values obtained from A1C measurements can vary. For atypical A1C assays, a reported value of 7.0 could actually be between 6.72 and 7.28 if measured by a reference method. A reported value of 9.0 could actually be between 8.73 and 9.27. Ref: http://www.ngs p.org/CAPdata. asp Ordering Provider: ROGELIO SEN Report Released Date/Time: Jan 13, 2024 10:20 AM Reporting [facility] [address] [address] Performing Lab: [address] [address] HEMOGLOBIN A1C 5.4 4.0-5.6 Jan 13, 2024 10:38 AM [facility] BASIC METABOLIC PANEL (non-fasting) Spe cimen Type: SERUM No comment entered. Ordering Provider: ROGELIO SEN Report Released Date/Time: Jan 13, 2024 10:20 AM Reporting Lab: [facility] [address] [facility] [address] Performing Lab: [address] [address] UREA NITROGEN 23 mg/dL 7-25 GLUCOSE 106 mg/dL H 65-100 SODIUM 138 mmol/L 135-145 POTASSIUM 3.4 mmol/L L 3.5-5.0 CHLORIDE 98 mmol/L L 100-110 CO2 33 meq/L H 20-30 CREATININE, Serum 0.83 mg/dL 0.50-1.40 eGFR(CKD-EPI 2020) 89 mL/min >60 Jan 13, 2024 10:38 AM [facility] CBC AND DIFF (AUTO) Specimen Type: BLOOD No comment entered. Ordering Provider: ROGELIO SEN Report Released Date/Time: Jan 13, 2024 10:20 AM Reporting Lab: [facility] [address] [facility] [address] Performing Lab: [address] [address] WBC 8.45 10*3/uL 4.50-11.00 RBC 5.13 10*6/uL 4.23-5.66 HGB 15.7 g/dL 12.8-17 HCT 45.7 39.2-50.4 MCV 89.1 fL 82-99 MCHC 34.4 g/dL 30.8-35.1 PLT 220 10*3/uL 140-360 RDW-CV 12.7 12.0-16.0 [place], Abs 0.57 10*3/uL 0.30-1.10 MCH 30.6 pg 26.2-32.6 Neut % 64.9 43.7-75.8 Lymph % 25.3 14.0-42.3 [place] % 6.7 5.1-13.7 Eos % 2.2 0.4-6.8 Baso % 0.5 0.1-2.0 Neut, Abs 5.48 10*3/uL 2.20-7.60 Lymph, Abs 2.14 10*3/uL 1.00-3.20 Eos, Abs 0.19 10*3/uL 0.03-0.44 Baso, Abs 0.04 10*3/uL 0.01-0.13 Immature Gran % 0.4 0.0-0.7 Immature Gran, Abs 0.03 10*3/uL 0.00-0.06 Jan 13, 2024 10:38 AM [facility] HEPATITIS C ANTIBODY (HCV)-ARC Specimen Type: SERUM Comment: Hep C Ab: No HCV antibody detected. If recent infection is suspected or other evidence suggests HCV infection, consider HCV nucleic acid testing Ordering Provider: ROGELIO SEN Report Released Date/Time: Jan 13, 2024 10:29 AM Reporting Lab: [facility] [address] [facility] [address] Performing Lab: [address] [address] HEPATITIS C ANTIBODY NON-REACTIVE NON-REACTIV E Encounter Notes: All associated encounter notes This section contains the clinical notes associated to the Encounter. Date/Time Encounter Note(s) Provider Source Jan 20, 2024 12:00 PM NONVA CONSULT: LOCAL TITLE: COMMUNITY CARE-CONSULT RESULT NOTE STANDARD TITLE: NONVA CONSULT DATE OF NOTE: JAN 20, 2024@12:00 ENTRY DATE: APR 19, 2024@06:54:16 AUTHOR: SAMUEL JOSUE EXP COSIGNER: URGENCY: STATUS: COMPLETED VistA Imaging - Scanned Document SCANNED DOCUMENT SIGNATURE NOT REQUIRED Electronically Filed: 04/19/2024 by: SAMUEL UP [facility]
--- OUTSIDE RECORDS SUMMARY | 2024-10-16 13:03 | XMS_ITS | Encounter Summary ---
Author Name [facility] [place] [facility] [place] Address [address] [place] [address] Care Team Providers Care Oil Sales And Service Rep Name Role Phone KERON NASH Primary Care [...] PART B Sep 07, 2010 PART B [id number] PARTH DUMONT PHEN PATIENT MEDICARE (WNR) MEDICARE (M) PART A Jun 07, 2010 PART A [id number] PARTH DUMONT PHEN PATIENT UNICARE INCOME PROTECTIO N (INDEMNIT Y) [place] RE STATE INDEM N Sep 07, 2010 [id number] BLAISE DUMONT SPOUSE Selected Encounter This section includes the information on record at [place] for the Encounter. Date/Time Encounter Type Encounter Description Reason Provider Source Jan 13, 2024 09:30 AM OFFICE O/P EST HI 40 MIN PRIMARY CARE/MEDICINE ICD-10-CM D72.819 Decreased white blood cell count, unspecified ROGELIO SEN Encounter Template Text not used by VA Assessments - Encounter Diagnoses This section includes the primary and secondary diagnoses documented for the Encounter. 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 Feb 03, 2024 10:45 AM SECONDARY Chronic respiratory failure with hypoxia SEN,[facility] Feb 03, 2024 10:45 AM SECONDARY Contact with and exposure to other hazardous substances SEN,[facility] Feb 03, 2024 10:45 AM SECONDARY Essential (primary) hypertension SEN,[facility] Feb 03, 2024 10:45 AM SECONDARY Hyperlipidemia, unspecified SEN,[facility] Feb 03, 2024 10:45 AM SECONDARY [facility] Feb 03, 2024 10:45 AM SECONDARY Impaired fasting glucose [facility] Feb 03, 2024 10:45 AM SECONDARY Obstructive sleep apnea (adult) (pediatric) SEN,[facility] Feb 03, 2024 10:45 AM SECONDARY Pneumoconiosis due to asbestos and other mineral fibers SEN,[facility] Feb 03, 2024 10:45 AM SECONDARY Sensorineural hearing loss, bilateral SEN,[facility] Feb 03, 2024 10:45 AM SECONDARY Tinnitus, unspecified ear SEN,[facility] Plan of Treatment: Future Appointments (+ 6 months) and Future Tests (+/- 45 days) The Plan of Treatment section includes future care activities for the patient [facility] [place] [facility] This section includes future appointments and future orders which are active, pending or scheduled. Future Appointments This section includes appointments that were scheduled to occur 6 months from the date of the Encounter, up to a maximum of 20 appointments. The data comes from all [place] treatment facilities. Appointment Date/Time Appointment Type Appointme nt Facility Name Feb 03, 2024 02:30 PM AMBULATORY - MEDICINE [facility] April 04, 2024 02:30 PM [facility] Apr 13, 2024 10:00 AM AMBULATORY - MEDICINE [facility] May 09, 2024 09:30 AM [facility] May 09, 2024 10:30 AM [facility] [place] [facility] Jun 20, 2024 09:00 AM AMBULATORY - MEDICINE [facility] Lab Results: +/- 30 days of the encounter This section includes the Chemistry and Hematology Lab Results on record with [place] for the patient. Radiology Reports and Pathology Reports are provided separately, in subsequent sections. Lab Results This section contains the Chemistry/Hematology Results that were resulted 30 days before or 30 daysafter the date of the Encounter. Date/Time Source Result Type Result - Unit Interpretation Reference Range Comment Jan 13, 2024 10:38 AM [facility] HEMOGLOBIN A1C PANEL Specimen Type: BLOOD Comment: [...] Jan 13, 2024 10:20 AM Reporting Lab: [address] [address] Performing Lab: [address] [address] HEMOGLOBIN A1C 5.4 4.0-5.6 Jan 13, 2024 10:38 AM [facility] BASIC METABOLIC PANEL (non-fasting) Spe cimen Type: SERUM No comment entered. Ordering Provider: ROGELIO SEN Report Released Date/Time: Jan 13, 2024 10:20 AM Reporting Lab: [address] [address] Performing Lab: [address] [address] UREA NITROGEN 23 mg/dL 7-25 GLUCOSE 106 mg/dL H 65-100 SODIUM 138 mmol/L 135-145 POTASSIUM 3.4 mmol/L L 3.5-5.0 CHLORIDE 98 mmol/L L 100-110 CO2 33 meq/L H 20-30 CREATININE, Serum 0.83 mg/dL 0.50-1.40 eGFR(CKD-EPI 2020) 89 mL/min >60 Jan 13, 2024 10:38 AM [facility] CBC AND DIFF (AUTO) Specimen Type: BLOOD No comment entered. Ordering Provider: ROGELIO SEN Report Released Date/Time: Jan 13, 2024 10:20 AM Reporting Lab: [facility] [address] [facility] [facility] [address] Performing Lab: [facility] [address] [facility] [address] WBC 8.45 10*3/uL 4.50-11.00 RBC 5.13 10*6/uL 4.23-5.66 HGB 15.7 g/dL 12.8-17 HCT 45.7 39.2-50.4 MCV 89.1 fL 82-99 MCHC 34.4 g/dL 30.8-35.1 PLT 220 10*3/uL 140-360 RDW-CV 12.7 12.0-16.0 [place], Abs 0.57 10*3/uL 0.30-1.10 MCH 30.6 pg 26.2-32.6 Neut % 64.9 43.7-75.8 Lymph % 25.3 14.0-42.3 [place] % 6.7 5.1-13.7 Eos % 2.2 0.4-6.8 Baso % 0.5 0.1-2.0 Neut, Abs 5.48 10*3/uL 2.20-7.60 Lymph, Abs 2.14 10*3/uL 1.00-3.20 Eos, Abs 0.19 10*3/uL 0.03-0.44 Baso, Abs 0.04 10*3/uL 0.01-0.13 Immature Gran % 0.4 0.0-0.7 Immature Gran, Abs 0.03 10*3/uL 0.00-0.06 Jan 13, 2024 10:38 AM [facility] HEPATITIS C ANTIBODY (HCV)-ARC Specimen Type: SERUM Comment: Hep C Ab: No HCV antibody detected. If recent infection is suspected or other evidence suggests HCV infection, consider HCV nucleic acid testing Ordering Provider: ROGELIO SEN Report Released Date/Time: Jan 13, 2024 10:29 AM Reporting Lab: [facility] [address] [facility] [address] Performing Lab: [facility] [address] [facility] [facility] [address] HEPATITIS C ANTIBODY NON-REACTIVE NON-REACTIV E Vital Signs: All taken on the encounter date This section contains inpatient and outpatient Vital Signs collected on the date of the Encounter. Date/Time Temperature Pulse Blood Pressure Respiratory Rate SP02 Pain Height Weight Body Mass Index Source Jan 13, 2024 09:49 AM 98.1 62 141/62 18 96 1 74 214 28 [facility] Social History: Smoking Status (Most current) and Tobacco Use (All prior to encounter date) This section includes the most current, and the historical, smoking and tobacco- related health factors from the [place] facility where the Encounter took place. Current Smoking Status This section includes the most current smoking, or tobacco-related health factor, from the [place] facility where the Encounter took place. Date/Time Current Smoking Status Comment Facil ity Jun 06, 2023 02:00 PM [place]-TOBACCO NEVER USED [facility] Encounter Notes: All associated encounter notes This section contains the clinical notes associated to the Encounter. Date/Time Encounter Note(s) Provider Source Jan 13, 2024 10:02 AM PHYSICIAN NOTE: LOCAL TITLE: NOTE STANDARD TITLE: PHYSICIAN NOTE DATE OF NOTE: JAN 13, 2024@10:02 ENTRY DATE: JAN 13, 2024@10:02:12 AUTHOR: ROGELIO SEN COSIGNER: URGENCY: STATUS: COMPLETED NOTE Has ADDENDA PRIMARY CARE VISIT DENISSE DUMONT, is a 78 yo WHITE MALE [place] who [facility] today at the [place] [facility] TYPE OF VISIT: Face to face CHART REVIEWED, PATIENT EXAMINED. HPI: NO MEDS LISTED IN CHART NEW PATIENT TO MY CLINIC PULM DR. USHA BUENROSTRO [facility] + Asbestosis via CT Scan + service related using oxygen at night CPAP On chlorthalidone for HTN from comm pcp but peeing all the time takes med at night has h/o low K but not on replacement +prostate symptoms chronic cough seeing Dr. Arce at [facility] for Pulm denies cardiac complaints +anx but emotionally okay denies SI Home BP's WNL per vet Most Recent labs reviewed and all medications were reconciled during this visit. Service Connection/Rated Disabilities: Service Connected Disabilities with % Eligibility: SERVICE CONNECTED 50% to 100% VERIFIED Total S/C %: 50 TINNITUS 10% S/C IMPAIRED HEARING 40% S/C HEALTHCARE PROVIDERS: Dr. Braxton Arce HISTORY: PERIOD OF SERVICE - Jarvam FROM Aug TO Aug COMBAT SERVICE INDICATED: No VITAL SIGNS: Temperature 98.1 F [36.7 C] (01/13/2024 09:49) Blood Pressure 141/62 (01/13/2024 09:49) Pulse 62 (01/13/2024 09:49) Respiration 18 (01/13/2024 09:49) Pain 1 (01/13/2024 09:49) BMI BMI: 27.5 Weight 214 lb [97.07 kg] (01/13/2024 09:49) Pulse Oximetry 96% (01/13/2024 09:49) ASSISTIVE DEVICES: REVIEW OF SYSTEMS: All systems are reviewed and are otherwise negative, unless specified in the HPI. PHYSICAL EXAMINATION: General: Well-appearing, in no obvious distress. Mental Status: Alert and oriented x 3. Head: Normocephalic, atraumatic. Eyes: PERRL. EOMI. Anicteric sclerae. ENT: Moist oral mucosa. dentition Neck: Supple. FROM. No JVD. No LAD. No bruit. Thyroid unremarkable. Lungs: CTAB. ?RML rhonchi, cleared with cough. Normal chest excursion. Eupneic respirations. CV: Heart tones S1, S2. RRR. No M/G/R. No peripheral edema GI: Abdomen is soft and nontender. No palpable mass or organomegaly. Ext: No cyanosis or clubbing. No gross deformities. Neuro: CN II through XII grossly intact. Normal speech. Normal gait. Integument: Skin warm and dry. No rashes or lesions on visible areas. Psych: Normal mood and affect. Normal judgment. Cooperative with exam, follows commands. ALLERGIES: Patient has answered [facility]TE[facility] PREVENTIVE MEDICINE GOALS Advance Directive Screen AD Dec 07 Hepatitis C Testing DUE NOW Pneumococcal Conjugate Vaccine (PCV15/PCDUE NOW Influenza Immunization DUE NOW Medication Reconciliation DUE NOW COVID-19 Immunization DUE NOW Tdap Immunization DUE NOW HTN Assess for Elevated BP>=140/90 DUE NOW Herpes Zoster (Shingles) Vaccine Oct 25 RHS Screen DUE NOW ASSESSMENT/PLAN: Active problems - Computerized Problem List is the source for the followin. Leukopenia- unclear etiology Unclear if stable, check lab or test, as discussed. 2. Hypokalemia- Discussed risks and benefits of MAT (Medically Assisted Therapy), including specific medications. KCL Check level today patient verbalizes understanding of the above. 3. Asbestosis- CT Scan pos f/u Pulm Likely Service Related 4. Hypoxia- likely due to the above continue oxygen f/u Pulm 5. Interstitial lung disease-see above 6. Exposure to potentially hazardous substance++Asbestos exposure 7. HTN-Hypertension ([facility] [id number])- usually controlled however, long discussion today I rec'd that he talk to Dr. Limon about d/c'ing the Chlorthalidone due to increase urinary frequency and chronically low potassium Consider different med 8. Hyperlipidemia-controlled on atorvatatin 9. Factor V Leiden mutation- chronic anticoag with Coumadin no s/s of bleeding 10. 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 Sensorineural hearing loss, bilateral-has hearing aids 12. Tinnitus ([facility] [id number]) 13. Impaired fasting glucose: Unclear if stable, check lab or test, as discussed. 14. Obstructive sleep apnea continue CPAP and nocturnal Oxygen Total time I spent on this visit was 45 minutes and included a review of chart, labs, notes, physical exam and discussion/education of patient. FOLLOW UP: Return to clinic as noted below and/or sooner PRN UPCOMING APPOINTMENTS: 10/29/2024 10:00 NHM/OPTOMETRY/BORASKI All medications were reconciled during this visit. No barriers noted; patient understands and agrees to current treatment plan. If patient has any questions, concerns or changes in current health status he/she will call or come in to the VA. PACT TEAM INSTRUCTIONS: HTN Assess for Elevated BP>=140/90: Patient reported blood pressure Systolic BP 125 Diastolic BP 80 The patient's blood pressure is usually adequately controlled. No medication changes are indicated at this time. Comment: Managed by Dr. Limon at [facility] Hepatitis C Testing: Patient has given verbal consent for HCV antibody testing. An HCV lab test has been ordered - see orders tab. Medication Reconciliation: Outpatient: Has the patient been taking medications as documented in the EMLR? No: Discrepencies were identified. See below. Essential Medication List for Review used to complete this medication reconciliation. INCLUDED IN THIS LIST: Alphabetical list of active outpatient prescriptions dispensed from this VA (local) and dispensed from another [place] or [facility] facility (remote) as well as inpatient orders (local, pending and active), local clinic medications, locally documented non-VA medications, and local prescriptions that have or been discontinued in the past 90 days. - Discrepancies were identified, addressed, and discussed with the patient/caregiver at this encounter. Discrepancies: NO MEDS LISTED IN CHART - All changes in medications, including all non-VA/Herbal/OTC medications were entered into CPRS. - If there were any medications the patient should no longer take, they were discontinued. - The patient/caregiver was instructed to update this list, discard old lists, and take this list to the next appointment, whether with a VA or non-VA provider. /rupinder/ ROGELIO SEN MD PHYSICIAN Signed: 01/13/2024 10:38 01/29/2024 ADDENDUM STATUS: COMPLETED [place] low labs. will schedule OV this week to review. /es/ ROGELIO SEN MD PHYSICIAN Signed: 01/29/2024 11:12 ROGELIO SEN [facility] Jan 06, 2024 09:13 AM ADMINISTRATIVE NOT E: LOCAL TITLE: ADMINISTRATIVE NOTE STANDARD TITLE: ADMINISTRATIVE NOTE DATE OF NOTE: JAN 06, 2024@09:13 ENTRY DATE: JAN 06, 2024@09:13:08 AUTHOR: JENNYFER GARZA COSIGNER: URGENCY: STATUS: COMPLETED [facility] [address] [place] [phone] * DENISSE MARKO JULIA [address] [place], [place] [address] Date: JAN 06, 2024 re: This is a reminder of your upcoming PCP appt with ROGELIO SEN. Appointment Date: Jan@09:30 Appointment Type: In-person visit Fasting blood work NON fasting blood work CONFIRMED WITH THE Sincerely, Office Staff for: ROGELIO SEN Primary Care Provider [facility] [address] [place] [id number] T [phone] Upcoming Appointments: 01/13/2024 09:30 CWM/SO/PACT 2 10/29/2024 10:00 NHM/OPTOMETRY/BORASKI APPOINTMENT ABBREVIATION [place] (SPOPC OR SO = [address]) (GOPC OR GO = [address]) (NHM or NO = [facility]) (VVC - Video Call) (Tel-X Telephone Visit) (TH - Telehealth) /rupinder/ JENNYFER SUMMERS Signed: 01/06/2024 09:13 JENNYFER GARZA
--- OUTSIDE RECORDS SUMMARY | 2024-10-16 13:03 | XMS_ITS ---
Author Name [facility] [place] [facility] [place] Organization [facility] [place] Address [address] [place] [address] Care Team Providers Care Laundry Assistant Name Role Phone KERON NASH Primary Care [...] PART B Sep 07, 2010 PART B [id number] PARTH DUMONT PHEN PATIENT MEDICARE (WNR) MEDICARE (M) PART A Jun 07, 2010 PART A [id number] JULIAPARTH PHEN PATIENT UNICARE INCOME PROTECTIO N (INDEMNIT Y) [place] RE STATE INDEM N Sep 07, 2010 [id number] BLAISE DUMONTPIOTR SPOUSE Selected Encounter This section includes the information on record at [place] for the Encounter. Date/Time Encounter Type Encounter Description Reason Pro vider Source Jan 23, 2024 12:00 PM Outpatient Encounter COMMUNITY CARE CONSULT IHE Encounter Template Text not used by VA Plan of Treatment: Future Appointments (+ 6 months) and Future Tests (+/- 45 days) The Plan of Treatment section includes future care activities for the patient from all [place] treatmentfacilities. This section includes future appointments and future orders which are active, pending or scheduled. Future Appointments This section includes appointments that were scheduled to occur 6 months from the date of the Encounter, up to a maximum of 20 appointments. The data comes from all [place] treatment facilities. Appointment Date/Time Appointment Type Appointme nt Facility Name Feb 03, 2024 02:30 PM [facility]BULATORY - MEDICINE [facility] April 04, 2024 02:30 PM [facility] [facility] [place] [facility] Apr 13, 2024 10:00 AM [facility] May 09, 2024 09:30 AM AMBULATORY - RE[facility]AB MEDICIN [facility] [place] [facility] May 09, 2024 10:30 AM AMBULATORY - REHAB MEDICIN [facility] [place] [facility] Jun 20, 2024 09:00 AM AMBULATORY - MEDICINE [facility] Jul 18, 2024 09:15 AM [facility] [place] [facility] Lab Results: +/- 30 days of the encounter This section includes the Chemistry and Hematology Lab Results on record with [place] for the patient. Radiology Reports and Pathology Reports are provided separately, in subsequent sections. Lab Results This section contains the Chemistry/Hematology Results that were resulted 30 days before or 30 daysafter the date of the Encounter. Date/Time Source Result Type Result - Unit Interpretation Reference Range Comment Jan 13, 2024 10:38 AM [facility] HEMOGLOBIN A1C PANEL Specimen Type: BLOOD Comment: [...] Jan 13, 2024 10:20 AM Reporting Lab: [facility] [address] [address] Performing Lab: [address] [address] HEMOGLOBIN A1C 5.4 4.0-5.6 Jan 13, 2024 10:38 AM [facility] BASIC METABOLIC PANEL (non-fasting) Spe cimen Type: SERUM No comment entered. Ordering Provider: ROGELIO SEN Report Released Date/Time: Jan 13, 2024 10:20 AM Reporting Lab: [facility] [address] [facility] [address] Performing Lab: [address] [address] UREA NITROGEN 23 mg/dL 7-25 GLUCOSE 106 mg/dL H 65-100 SODIUM 138 mmol/L 135-145 POTASSIUM 3.4 mmol/L L 3.5-5.0 CHLORIDE 98 mmol/L L 100-110 CO2 33 meq/L H 20-30 CREATININE, Serum 0.83 mg/dL 0.50-1.40 eGFR(CKD-EPI 2020) 89 mL/min >60 Jan 13, 2024 10:38 AM [facility] CBC AND DIFF (AUTO) Specimen Type: BLOOD No comment entered. Ordering Provider: ROGELIO SEN Report Released Date/Time: Jan 13, 2024 10:20 AM Reporting Lab: [facility] [address] [facility] [address] Performing Lab: [address] [address] WBC 8.45 10*3/uL 4.50-11.00 RBC 5.13 10*6/uL 4.23-5.66 HGB 15.7 g/dL 12.8-17 HCT 45.7 39.2-50.4 MCV 89.1 fL 82-99 MCHC 34.4 g/dL 30.8-35.1 PLT 220 10*3/uL 140-360 RDW-CV 12.7 12.0-16.0 [place], Abs 0.57 10*3/uL 0.30-1.10 MCH 30.6 pg 26.2-32.6 Neut % 64.9 43.7-75.8 Lymph % 25.3 14.0-42.3 [place] % 6.7 5.1-13.7 Eos % 2.2 0.4-6.8 Baso % 0.5 0.1-2.0 Neut, Abs 5.48 10*3/uL 2.20-7.60 Lymph, Abs 2.14 10*3/uL 1.00-3.20 Eos, Abs 0.19 10*3/uL 0.03-0.44 Baso, Abs 0.04 10*3/uL 0.01-0.13 Immature Gran % 0.4 0.0-0.7 Immature Gran, Abs 0.03 10*3/uL 0.00-0.06 Jan 13, 2024 10:38 AM [facility] HEPATITIS C ANTIBODY (HCV)-ARC Specimen Type: SERUM Comment: Hep C Ab: No HCV antibody detected. If recent infection is suspected or other evidence suggests HCV infection, consider HCV nucleic acid testing Ordering Provider: ROGELIO SEN Report Released Date/Time: Jan 13, 2024 10:29 AM Reporting Lab: [facility] [address] [facility] [address] Performing Lab: [address] [address] HEPATITIS C ANTIBODY NON-REACTIVE NON-REACTIV E Encounter Notes: All associated encounter notes This section contains the clinical notes associated to the Encounter. Date/Time Encounter Note(s) Provider Source Jan 23, 2024 12:00 PM NONVA CONSULT: LOCAL TITLE: COMMUNITY CARE-CONSULT RESULT NOTE STANDARD TITLE: NONVA CONSULT DATE OF NOTE: JAN 23, 2024@12:00 ENTRY DATE: APR 19, 2024@06:59:18 AUTHOR: SAMUEL JOSUE EXP COSIGNER: URGENCY: STATUS: COMPLETED VistA Imaging - Scanned Document SCANNED DOCUMENT SIGNATURE NOT REQUIRED Electronically Filed: 04/19/2024 by: SAMUEL UP [facility]
--- OUTSIDE RECORDS SUMMARY | 2024-10-16 13:03 | XMS_ITS | Encounter Summary ---
Author Name [facility] [place] [facility] [place] [facility] [place] Address [address] [place] [address] Care Team Providers Care Prn Occupational Therapist Name Role Phone KERON NASH Primary Care [...] PART B Sep 07, 2010 PART B [id number] PARTH DUMONT PHEN PATIENT MEDICARE (WNR) MEDICARE (M) PART A Jun 07, 2010 PART A [id number] PARTH DUMONT PHEN PATIENT UNICARE INCOME PROTECTIO N (INDEMNIT Y) UNICA RE STATE INDEM N Sep 07, 2010 [id number] BLAISE DUMONT ERPIOTR SPOUSE Selected Encounter This section includes the information on record at [place] for the Encounter. Date/Time Encounter Type Encounter Description Reason Provider Source Apr 13, 2024 10:00 AM OFFICE O/P EST MOD 30 MIN PRIMARY CARE/MEDICINE ICD-10-CM H93.19 Tinnitus, unspecified ear ROGELIO SEN Encounter Template Text not used by [place] Assessments - Encounter Diagnoses This section includes the primary and secondary diagnoses documented for the Encounter. 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 May 07, 2024 02:01 PM SECONDARY Essential (primary) hypertension SEN,[facility] May 07, 2024 02:01 PM SECONDARY Hyperlipidemia, unspecified SEN,[facility] May 07, 2024 02:01 PM SECONDARY Hypokalemia SEN,[facility] May 07, 2024 02:01 PM SECONDARY Impaired fasting glucose SEN,[facility] May 07, 2024 02:01 PM SECONDARY Pain in unspecified wrist SEN,[facility] May 07, 2024 02:01 PM SECONDARY Sensorineural hearing loss, bilateral SEN,ROGELIO [facility] Plan of Treatment: Future Appointments (+ 6 months) and Future Tests (+/- 45 days) The Plan of Treatment section includes future care activities for the patient [facility] [place] [facility] This section includes future appointments and future orders which are active, pending or scheduled. Future Appointments This section includes appointments that were scheduled to occur 6 months from the date of the Encounter, up to a maximum of 20 appointments. The data comes from all [place] treatment facilities. Appointment Date/Time Appointment Type Appointme nt Facility Name May 09, 2024 09:30 AM AMBUL[facility] May 09, 2024 10:30 AM AMBULAT[facility] Jun 20, 2024 09:00 AM [facility] Jul 18, 2024 09:15 AM [place] [facility] Aug 08, 2024 09:00 AM [place] [facility] Aug 28, 2024 08:30 AM AMBULATORY - [facility] Lab Results: +/- 30 days of the encounter This section includes the Chemistry and Hematology Lab Results on record with [place] for the patient. Radiology Reports and Pathology Reports are provided separately, in subsequent sections. Lab Results This section contains the Chemistry/Hematology Results that were resulted 30 days before or 30 daysafter the date of the Encounter. Date/Time Source Result Type Result - Unit Interpretation Reference Range Comment April 03, 2024 01:13 PM [place] BASIC METABOLIC PANEL (non-fasting) Spe cimen Type: SERUM No comment entered. Ordering Provider: ROGELIO SEN Report Released Date/Time: Feb 03, 2024 03:13 PM Reporting Lab: [facility] [address] [address] Performing Lab: [facility] [address] [address] UREA NITROGEN 24 mg/dL 7-25 GLUCOSE 102 mg/dL H 65-100 SODIUM 141 mmol/L 135-145 POTASSIUM 3.9 mmol/L 3.5-5.0 CHLORIDE 107 mmol/L 100-110 CO2 25 meq/L 20-30 CREATININE, Serum 0.84 mg/dL 0.50-1.40 eGFR(CKD-EPI 2020) 89 mL/min >60 Social History: Smoking Status (Most current) and Tobacco Use (All prior to encounter date) This section includes the most current, and the historical, smoking and tobacco- related health factors from the [place] facility where the Encounter took place. Current Smoking Status This section includes the most current smoking, or tobacco-related health factor, from the [place] facility where the Encounter took place. Date/Time Current Smoking Status Comment Hudson aragon Jun 06, 2023 02:00 PM VA-TOBACCO NEVER USED [place] Radiology Reports: +/- 30 days of the encounter Radiology Reports For cases when an order for radiology services may have been completed prior to the date of the Encounter, the report list includes the Radiology Reports that were completed up to 30 days before dateof the Encounter. For cases when an order for radiology services may have been completed after the date of the Encounter, the report list also includes the Radiology Reports that were completed up to30 days after date of the Encounter. The data comes from all [place] treatment facilities. Date/Time Radiology Report Provider Source May 07, 2024 09:01 AM WRIST 3 OR MORE VIEWS(RIGHT): DENISSE DUMONT [id number] -1945 M Exm Date: MAY 07, 2024@09:01 Req Phys: ROGELIO SEN Milagros Pat Loc: [facility]/SO/PACT 2 (Req'g Loc) Img Loc: [facility]/BUILDING 1 Service: Unknown [facility] , (Case 6 COMPLETE) WRIST 3 OR MORE VIEWS(RIGHT) (RAD Detailed) CPT:13727 Reason for Study: right wrist pain Clinical History: no trauma Report Status: Verified Date Reported: MAY 09, 2024 Date Verified: MAY 09, 2024 Cloth Measurer E-Sig: Report: WRIST 3 OR MORE VIEWS(RIGHT) Comparison: None. Clinical History: right wrist pain Findings: No acute fracture, dislocation, or significant bony abnormality. Mild narrowing of the radiocarpal joint. Mild degenerative changes of the first carpometacarpal joint. Moderate degenerative changes of the first MCP.. Impression: No acute bony injury. Degenerative changes present READING PHYSICIAN: Adonay Gonzalez M.D. -[id number] 05/09/2024 13:42 PDT [facility] National Teleradiology Program [phone] (For Medical Practitioner Use Only) Attention Patients / Veterans: If you have questions or concerns about these test results, please contact your ordering provider or primary care team. Primary Diagnostic Code: NO ALERT REQUIRED Primary Interpreting Staff: RADIOLOGY,OUTSIDE SERVICE, Staff Physician / RADIOLOGY,OUTSIDE SERVICE [facility] Encounter Notes: All associated encounter notes This section contains the clinical notes associated to the Encounter. Date/Time Encounter Note(s) Provider Source Apr 27, 2024 10:09 AM ADDENDUM: LOCAL TITLE: Addendum STANDARD TITLE: ADDENDUM DATE OF NOTE: APR 27, 2024@10:09:40 ENTRY DATE: APR 27, 2024@10:09:40 AUTHOR: KERON NASH COSIGNER: URGENCY: STATUS: COMPLETED Pulmonary work-up unrevealing for etiology of exertional dyspnea. The was seen in consult by pulmonology for dyspnea on exertion on 01/20/2024, Dr. 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 Results of pulmonary function test were essentially normal. Underlying CT chest also with no significant findings for asbestosis. 2D echocardiogram showed LVEF 63% with no obvious valvular pathology. Also noted was mild dilatation of the ascending aorta measuring 4.20 cm. Given grossly normal pulmonary work-up and echocardiogram, I will order cardiopulmonary exercise testing. I called the patient to convey these findings and planned next steps. He agrees to cardiac stress testing. AMSA: Please contact the patient and schedule a 30-minute F2F appointment with me in 45 to 60 days. Thank you. /rupinder/ KERON NASH NP NURSE PRACTITIONER Signed: 04/27/2024 10:33 Receipt Acknowledged By: 04/30/2024 08:42 /rupinder/ PAMELA ALANIZ GALETON DOCUMENT CONTROL SPECIALIST --- Original Document --- 04/13/24 NOTE: PRIMARY CARE VISIT DENISSE DUMONT, is a 78 yo WHITE MALE TYPE OF VISIT: Face to face CHART REVIEWED, PATIENT EXAMINED. HPI: vs 74 217 138/72 57 95% right wrist pain intermittent...it's a click and then it goes on trying to open something Sees Dr. Limon BP's have been good k level improved on supplementation Most Recent labs reviewed and all medications were reconciled during this visit. Service Connection/Rated Disabilities: Service Connected Disabilities with % Eligibility: SERVICE CONNECTED 50% to 100% VERIFIED Total S/C %: 50 TINNITUS 10% S/C IMPAIRED HEARING 40% S/C HISTORY: PERIOD OF SERVICE - [facility] FROM Aug TO Aug COMBAT SERVICE INDICATED: No VITAL SIGNS: Temperature 97.9 F [36.6 C] (02/03/2024 14:25) Blood Pressure 134/77 (02/03/2024 14:25) Pulse 63 (02/03/2024 14:25) Respiration 18 (02/03/2024 14:25) Pain 0 (02/03/2024 14:25) BMI BMI: 28.4 Weight 220.8 lb [100.15 kg] (02/03/2024 14:25) Pulse Oximetry 96% (02/03/2024 14:25) ASSISTIVE DEVICES: REVIEW OF SYSTEMS: All systems are reviewed and are otherwise negative, unless specified in the HPI. PHYSICAL EXAMINATION: General: Well-appearing, in no obvious distress. Mental Status: Alert and oriented x 3. Head: Normocephalic, atraumatic. Eyes: PERRL. EOMI. Anicteric sclerae. ENT: Moist oral mucosa. dentition Neck: Supple. FROM. No JVD. Ext: No cyanosis or clubbing. No gross deformities. Neuro: CN II through XII grossly intact. Normal speech. Normal gait. Integument: Skin warm and dry. No rashes or lesions on visible areas. Psych: Normal mood and affect. Normal judgment. Cooperative with exam, follows commands. ALLERGIES: Patient has answered [facility] HEALTH MAINTENANCE PREVENTIVE MEDICINE GOALS Advance Directive Screen AD Dec 07 Falls & Incontinence Screen Jun 06 Pneumococcal Conjugate Vaccine (PCV15/PCDUE NOW Influenza Immunization DUE NOW Medication Reconciliation DUE NOW COVID-19 Immunization DUE NOW Tdap Immunization DUE NOW Herpes Zoster (Shingles) Vaccine Oct 25 RHS Screen DUE NOW (Optional) Whole Health Documentation DUE NOW ASSESSMENT/PLAN: Active problems - Computerized Problem List is the source for the followin. Wrist pain- ? tendonitis vs. other doubtful CTS check xray and refer to PT 2. Leukopenia- improved 3. Hypokalemia- improved on KCL 4. Impaired Fasting Glucose ([facility] [id number])- continue to focus on healthy diet and exercise 7. Interstitial lung disease- f/u pulmonary 8. HTN-Hypertension ([facility] [id number])- controlled on meds continue 10. Hyperlipidemia ([facility] 85021923)- continue current regimen 11. Factor V Leiden mutation- on coumadin 12. Chronic deep venous thrombosis of lower extremity- lifetime coumadin no s/s bleeding 13. Sensorineural hearing loss, bilateral- chronic, currently stable f/u audiology prn 14. Tinnitus ([facility] [id number])- intermittent worsening but overall stable Total time I spent on this visit was 30 minutes and included a review of chart, labs, notes, physical exam and discussion/education of patient. LAB ORDERS FOR NEXT VISIT: NURSING: PLEASE ORDER APPROPRIATE CHRONIC DISEASE LAB ORDERS FOLLOW UP: Return to clinic as noted below and/or sooner PRN UPCOMING APPOINTMENTS: 10/29/2024 10:00 NHM/OPTOMETRY/BORASKI All medications were reconciled during this visit. No barriers noted; patient understands and agrees to current treatment plan. If patient has any questions, concerns or changes in current health status he/she will call or come [facility] to the [facility]. PACT TEAM INSTRUCTIONS: Medication Reconciliation: Outpatient: Has the patient been taking medications as documented in the EMLR? YES: The patient has been taking medications as documented in the EMLR. Essential Medication List for Review used to complete this medication reconciliation. INCLUDED IN THIS LIST: Alphabetical list of active outpatient prescriptions dispensed from this [facility] (local) and dispensed from another [place] or [place] facility (remote) as well as [...] provider. /rupinder/ ROGELIO SEN MD PHYSICIAN Signed: 04/13/2024 12:43 04/27/2024 ADDENDUM STATUS: COMPLETED THIS ANTHROPOLOGY FACULTY MEMBER WAS UNABLE TO REACH LMOM TO CALL BACK ANTHROPOLOGY FACULTY MEMBER WILL TRY AGAIN NEXT WEEK /jeaneth ALANIZ ADVANCE DOCUMENT CONTROL SPECIALIST Signed: 04/27/2024 15:59 04/30/2024 ADDENDUM STATUS: COMPLETED THIS ANTHROPOLOGY FACULTY MEMBER SPOKE w/ AND IS BOOKED FOR 06/19/24 LETTER SENT /jeaneth ALANIZ ADVANCE DOCUMENT CONTROL SPECIALIST Signed: 04/30/2024 08:42 KERON NASH [place] Apr 13, 2024 10:28 AM PHYSICIAN NOTE: LOCAL TITLE: MD NOTE STANDARD TITLE: PHYSICIAN NOTE DATE OF NOTE: APR 13, 2024@10:28 ENTRY DATE: APR 13, 2024@10:28:44 AUTHOR: ROGELIO SEN EXP COSIGNER: URGENCY: STATUS: COMPLETED NOTE Has ADDENDA PRIMARY CARE VISIT DENISSE DUMONT, is a 78 yo WHITE MALE TYPE OF VISIT: Face to face CHART REVIEWED, PATIENT EXAMINED. HPI: vs 74 217 138/72 57 95% right wrist pain intermittent...it's a click and then it goes on trying to open something Sees Dr. Limon BP's have been good k level improved on supplementation Most Recent labs reviewed and all medications were reconciled during this visit. Service Connection/Rated Disabilities: Service Connected Disabilities with % Eligibility: SERVICE CONNECTED 50% to 100% VERIFIED Total S/C %: 50 TINNITUS 10% S/C IMPAIRED HEARING 40% S/C HISTORY: PERIOD OF SERVICE - [facility] FROM Aug TO Aug COMBAT SERVICE INDICATED: No VITAL SIGNS: Temperature 97.9 F [36.6 C] (02/03/2024 14:25) Blood Pressure 134/77 (02/03/2024 14:25) Pulse 63 (02/03/2024 14:25) Respiration 18 (02/03/2024 14:25) Pain 0 (02/03/2024 14:25) BMI BMI: 28.4 Weight 220.8 lb [100.15 kg] (02/03/2024 14:25) Pulse Oximetry 96% (02/03/2024 14:25) ASSISTIVE DEVICES: REVIEW OF SYSTEMS: All systems are reviewed and are otherwise negative, unless specified in the HPI. PHYSICAL EXAMINATION: General: Well-appearing, in no obvious distress. Mental Status: Alert and oriented x 3. Head: Normocephalic, atraumatic. Eyes: PERRL. EOMI. Anicteric sclerae. ENT: Moist oral mucosa. dentition Neck: Supple. FROM. No JVD. Ext: No cyanosis or clubbing. No gross deformities. Neuro: CN II through XII grossly intact. Normal speech. Normal gait. Integument: Skin warm and dry. No rashes or lesions on visible areas. Psych: Normal mood and affect. Normal judgment. Cooperative with exam, follows commands. ALLERGIES: Patient has answered [facility] HEALTH MAINTENANCE PREVENTIVE MEDICINE GOALS Advance Directive Screen AD Dec 07 Falls & Incontinence Screen Jun 06 Pneumococcal Conjugate Vaccine (PCV15/PCDUE NOW Influenza Immunization DUE NOW Medication Reconciliation DUE NOW COVID-19 Immunization DUE NOW Tdap Immunization DUE NOW Herpes Zoster (Shingles) Vaccine Oct 25 RHS Screen DUE NOW (Optional) Whole Health Documentation DUE NOW ASSESSMENT/PLAN: Active problems - Computerized Problem List is the source for the followin. Wrist pain- ? tendonitis vs. other doubtful CTS check xray and refer to PT 2. Leukopenia- improved 3. Hypokalemia- improved on KCL 4. Impaired Fasting Glucose ([facility] 188188103)- continue to focus on healthy diet and exercise 7. Interstitial lung disease- f/u pulmonary 8. HTN-Hypertension ([facility] 77164551)- controlled on meds continue 10. Hyperlipidemia ([facility] 50906439)- continue current regimen 11. Factor V Leiden mutation- on coumadin 12. Chronic deep venous thrombosis of lower extremity- lifetime coumadin no s/s bleeding 13. Sensorineural hearing loss, bilateral- chronic, currently stable f/u audiology prn 14. Tinnitus ([facility] [id number])- intermittent worsening but overall stable Total time I spent on this visit was 30 minutes and included a review of chart, labs, notes, physical exam and discussion/education of patient. LAB ORDERS FOR NEXT VISIT: NURSING: PLEASE ORDER APPROPRIATE CHRONIC DISEASE LAB ORDERS FOLLOW UP: Return to clinic as noted below and/or sooner PRN UPCOMING APPOINTMENTS: 10/29/2024 10:00 NHM/OPTOMETRY/BORASKI All medications were reconciled during this visit. No barriers noted; patient understands and agrees to current treatment plan. If patient has any questions, concerns or changes in current health status he/she will call or come in to the VA. PACT TEAM INSTRUCTIONS: Medication Reconciliation: Outpatient: Has the patient been taking medications as documented in the EMLR? YES: The patient has been taking medications as documented in the EMLR. Essential Medication List for Review used to complete this medication reconciliation. INCLUDED IN THIS LIST: Alphabetical list of active outpatient prescriptions dispensed from this [place] (local) and dispensed from another [place] or [place] facility (remote) as well as [...] with a VA or non-VA provider. /rupinder/ ROGEILO SEN MD PHYSICIAN Signed: 04/13/2024 12:43 04/27/2024 ADDENDUM STATUS: COMPLETED Pulmonary work-up unrevealing for etiology of exertional dyspnea. The was seen in consult by pulmonology for dyspnea on exertion on 01/20/2024, Dr. 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 Results of pulmonary function test were essentially normal. Underlying CT chest also with no significant findings for asbestosis. 2D echocardiogram showed LVEF 63% with no obvious valvular pathology. Also noted was mild dilatation of the ascending aorta measuring 4.20 cm. Given grossly normal pulmonary work-up and echocardiogram, I will order cardiopulmonary exercise testing. I called the patient to convey these findings and planned next steps. He agrees to cardiac stress testing. AMSA: Please contact the patient and schedule a 30-minute F2F appointment with me in 45 to 60 days. Thank you. /rupinder/ KERON NASH NP NURSE PRACTITIONER Signed: 04/27/2024 10:33 Receipt Acknowledged By: 04/30/2024 08:42 /rupinder/ PAMELA ALANIZ ADVANCE DOCUMENT CONTROL SPECIALIST 04/27/2024 ADDENDUM STATUS: COMPLETED THIS ANTHROPOLOGY FACULTY MEMBER WAS UNABLE TO REACH LMOM TO CALL BACK ANTHROPOLOGY FACULTY MEMBER WILL TRY AGAIN NEXT WEEK /jeaneth ALANIZ ADVANCE DOCUMENT CONTROL SPECIALIST Signed: 04/27/2024 15:59 04/30/2024 ADDENDUM STATUS: COMPLETED THIS ANTHROPOLOGY FACULTY MEMBER SPOKE w/ AND IS BOOKED FOR 06/19/24 LETTER SENT /rupinder/ PAMELA ALANIZ ADVANCE DOCUMENT CONTROL SPECIALIST Signed: 04/30/2024 08:42 ROGELIO SEN
--- OUTSIDE RECORDS SUMMARY | 2024-10-16 13:03 | XMS_ITS ---
Author Name [facility] [place] Address [address] [place] [address] Care Team Providers Care Academic Coach Name Role Phone KERON NASH Primary Care Provider Unavailcristobal adan Insurance Providers: All historical and current [...] PART B Sep 07, 2010 PART B [id number] PARTH DUMONT PHEN PATIENT MEDICARE (WNR) MEDICARE (M) PART A Jun 07, 2010 PART A [id number] JULIAPARTH PHEN PATIENT UNICARE INCOME PROTECTIO N (INDEMNIT Y) [place] RE STATE INDEM N Sep 07, 2010 [id number] BLAISE DUMONT SPOUSE Selected Encounter This section includes the information on record at [place] for the Encounter. Date/Time Encounter Type Encounter Description Reason Provider Source April 04, 2024 02:30 PM HEARING AID REPAIR/MODIFYIN G AUDIOLOGY ICD-10-CM Z46.1 Encounter for fitting and adjustment of hearing aid CAMINITI,LINO E IHE Encounter Template Text not used by [place] Assessments - Encounter Diagnoses This section includes the primary and secondary diagnoses documented for the Encounter. Date/Time Primary/Secondary Diagnosis Diagnosis Name Provider Source April 04, 2024 02:42 PM PRIMARY Encounter for fitting and adjustment of hearing aid LINO GARZA [facility] [place] [facility] April 04, 2024 02:42 PM SECONDARY Sensorineural hearing loss, bilateral LINO GARZA [facility] [place] [facility] Plan of Treatment: Future Appointments (+ 6 months) and Future Tests (+/- 45 days) The Plan of Treatment section includes future care activities for the [facility] [place] [facility] This section includes future appointments and future orders which are active, pending or scheduled. Future Appointments This section includes appointments that were scheduled to occur 6 months from the date of the Encounter, up to a maximum of 20 appointments. The data comes from all [place] treatment facilities. Appointment Date/Time Appointment Type Appointme nt Facility Name Apr 13, 2024 10:00 AM AMBULATORY - MEDICINE [facility] May 09, 2024 09:30 AM AMBULATORY - REHAB MEDICIN [facility] [place] [facility] May 09, 2024 10:30 AM AMBULATORY - REHAB MEDICIN [facility] [place] [facility] Jun 20, 2024 09:00 AM AMBULATORY - MEDICINE [facility] Jul 18, 2024 09:15 AM AMBULATORY - MEDICINE [place] [facility] [place] [facility] Aug 08, 2024 09:00 AM AMBULATORY - MEDICINE [place] [facility] [place] [facility] Aug 28, 2024 08:30 AM AMBULATORY - REHAB MEDICIN [facility] [place] [facility] Lab Results: +/- 30 days of the encounter This section includes the Chemistry and Hematology Lab Results on record with [place] for the patient. Radiology Reports and Pathology Reports are provided separately, in subsequent sections. Lab Results This section contains the Chemistry/Hematology Results that were resulted 30 days before or 30 daysafter the date of the Encounter. Date/Time Source Result Type Result - Unit Interpretation Reference Range Comment April 03, 2024 01:13 PM [facility] BASIC METABOLIC PANEL (non-fasting) Spe cimen Type: SERUM No comment entered. Ordering Provider: ROGELIO SEN Report Released Date/Time: Feb 03, 2024 03:13 PM Reporting Lab: [facility] [address] [address] Performing Lab: [facility] [address] [address] UREA NITROGEN 24 mg/dL 7-25 GLUCOSE 102 mg/dL H 65-100 SODIUM 141 mmol/L 135-145 POTASSIUM 3.9 mmol/L 3.5-5.0 CHLORIDE 107 mmol/L 100-110 CO2 25 meq/L 20-30 CREATININE, Serum 0.84 mg/dL 0.50-1.40 eGFR(CKD-EPI 2020) 89 mL/min >60 Encounter Notes: All associated encounter notes This section contains the clinical notes associated to the Encounter. Date/Time Encounter Note(s) Provider Source April 04, 2024 09:50 AM AUDIOLOGY E & M NO TE: [facility] TITLE: AUDIOLOGY CLINIC STANDARD TITLE: AUDIOLOGY E & M NOTE DATE OF NOTE: APRIL 04, 2024@09:50 ENTRY DATE: APRIL 04, 2024@09:50:58 AUTHOR: LINO GARZA EXP COSIGNER: URGENCY: STATUS: COMPLETED AUDIOLOGY CLINIC Has ADDENDA has a history of bilateral sensorineural hearing loss. He was seen on 04-04-24 for hearing aid follow up regarding his Phonak RICs. He reports the left hearing aid got lost at a car show. He was able to find it a couple days later but the earmold is cracked. Also, static was heard from it today. A new display designer was installed but static remains. A new left earmold was ordered with impression on file. The left aid was sent in for repair. When both arrive, should be called and scheduled for HAC. /rpuinder/ Seth WONG, [facility]-A STAFF TAILINGS DAM LABORER Signed: 04/04/2024 14:47 04/17/2024 ADDENDUM STATUS: COMPLETED called checking on the status of his hearing aids. not in the clinic as of yet. the best number to call is [phone] when they arrive /rupinder/ ANKUR ALMEIDA LEAD SAFETY PIN ASSEMBLING MACHINE OPERATOR Signed: 04/17/2024 11:11 04/18/2024 ADDENDUM STATUS: COMPLETED Repaired left hearing aid and earmold received and certified, spoke with [facility] and scheduled appointment on 04/23/2024 @ 1000 for chart picker and pairing. /rupinder/ LUDIN EUGENE [facility] Rn Flight Signed: 04/18/2024 15:30 [facility]
--- OUTSIDE RECORDS SUMMARY | 2024-10-16 13:03 | XMS_ITS ---
Author Name [facility] [place] Address [address] [place] [address] Care Team Providers Care Urban Redevelopment Specialist Name Role Phone KERON NASH Primary Care [...] PART B Sep 07, 2010 PART B [id number] PARTH DUMONT PHEN PATIENT MEDICARE (WNR) MEDICARE (M) PART A Jun 07, 2010 PART A [id number] JULIAPARTH PHEN PATIENT UNICARE INCOME PROTECTIO N (INDEMNIT Y) [place] RE STATE INDEM N Sep 07, 2010 [id number] BLAISE DUMONT SPOUSE Selected Encounter This section includes the information on record at [place] for the Encounter. Date/Time Encounter Type Encounter Description Reason Provider Source May 09, 2024 09:30 AM HEARING AID FITTING/CHECKIN G AUDIOLOGY ICD-10-CM Z46.1 Encounter for fitting and adjustment of hearing aid JERARDO GRULLON Encounter Template Text not used by [place] Assessments - Encounter Diagnoses This section includes the primary and secondary diagnoses documented for the Encounter. Date/Time Primary/Secondary Diagnosis Diagnosis Name Provider Source May 09, 2024 09:43 AM PRIMARY Encounter for fitting and adjustment of hearing aid [facility] [place] [facility] May 09, 2024 09:43 AM SECONDARY Sensorineural hearing loss, bilateral [facility] Plan of Treatment: Future Appointments (+ 6 months) and Future Tests (+/- 45 days) The Plan of Treatment section includes future care activities for the patient from all [place] [facility]. This section includes future appointments and future orders which are active, pending or scheduled. Future Appointments This section includes appointments that were scheduled to occur 6 months from the date of the Encounter, up to a maximum of 20 appointments. The data comes from all [facility]. Appointment Date/Time Appointment Type Appointme nt Facility Name Jun 20, 2024 09:00 AM AMBULATORY - MEDICINE [facility] Jul 18, 2024 09:15 AM AMBULATORY - MEDICINE [facility] [place] [facility] Aug 08, 2024 09:00 AM AMBULATORY - MEDICINE [facility] [place] [facility] Aug 28, 2024 08:30 AM AM[place]ORY [place] [facility] [facility] Oct 29, 2024 10:00 AM AM[facility]UL[facility] Radiology Reports: +/- 30 days of the [...] the Encounter. The data comes from all [facility] facilities. Date/Time Radiology Report Provider Source May 07, 2024 09:01 AM WRIST 3 OR MORE VIEWS(RIGHT): DENISSE DUMONT [id number] -1945 M Exm Date: MAY 07, 2024@09:01 Req Phys: FRANCYROGELIO Milagros Yoo Loc: CWM/SO/PACT 2 (Req'g Loc) Img Loc: [place]/BUILDING 1 Service: Unknown [facility] , (Case 6 COMPLETE) WRIST 3 OR MORE VIEWS(RIGHT) (RAD Detailed) CPT:58001 Reason for Study: right wrist pain Clinical History: no trauma Report Status: Verified Date Reported: MAY 09, 2024 Date Verified: MAY 09, 2024 Production Finisher E-Sig: Report: WRIST 3 OR MORE VIEWS(RIGHT) Comparison: None. Clinical History: right wrist pain Findings: No acute fracture, dislocation, or significant bony abnormality. Mild narrowing of the radiocarpal joint. Mild degenerative changes of the first carpometacarpal joint. Moderate degenerative changes of the first MCP.. Impression: No acute bony injury. Degenerative changes present READING PHYSICIAN: Adonay Gonzalez M.D. -[id number] 05/09/2024 13:[address] [facility] National Teleradiology Program [phone] (For Medical Practitioner Use Only) Attention Patients / Veterans: If you have questions or concerns about these test results, please contact your ordering provider or primary care team. Primary Diagnostic Code: NO ALERT REQUIRED Primary Interpreting Staff: RADIOLOGY,OUTSIDE SERVICE, Staff Physician / RADIOLOGY,OUTSIDE SERVICE [facility] Encounter Notes: All associated encounter notes This section contains the clinical notes associated to the Encounter. Date/Time Encounter Note(s) Provider Source May 09, 2024 07:36 AM AUDIOLOGY NOTE: LOCAL TITLE: AUDIOLOGY [facility] TITLE: AUDIOLOGY NOTE DATE OF NOTE: MAY 09, 2024@07:36 ENTRY DATE: MAY 09, 2024@07:36:46 AUTHOR: LUDIN EUGENE COSIGNER: JERARDO GRULLON URGENCY: STATUS: COMPLETED May 09, 2024 History/Background: was seen for a hearing aid follow up, unaccompanied. was scheduled today to tack picker his repaired left hearing aid and new left earmold. Hearing aids: Phonak AUDEO P90-R RICs Serial Numbers: [id number] Battery size: Rechargeable Date Issued: 09/24/2022 Hearing aid check: Right hearing aid was cleaned and checked. Replaced wax guard. Biologic check was good. Both hearing aids were connected to Delver, a firmware update was done and user settings were restored. Listening inspection was positive for both hearing aids. Plan: will follow up as needed. /rupinder/ LUDIN EUGENE Audiology Health Quality Control Engineering Technician Signed: 05/09/2024 09:43 /rupinder/ JERARDO GRULLON STAFF BRUSH HAND Cosigned: 05/09/2024 09:48 LUDIN EUGENE [facility]
--- OUTSIDE RECORDS SUMMARY | 2024-10-16 13:03 | XMS_ITS ---
Author Name [facility] [place] Address [address] [place] [address] Care Team Providers Care Public Health Dietitian Name Role Phone KERON NASH Primary Care [...] PART B Sep 07, 2010 PART B [id number] PARTH DUMONT PHEN PATIENT MEDICARE (WNR) MEDICARE (M) PART A Jun 07, 2010 PART A [id number] JULIAPARTH PHEN PATIENT UNICARE INCOME PROTECTIO N (INDEMNIT Y) [place] RE STATE INDEM N Sep 07, 2010 [id number] BLAISE DUMONT SPOUSE Selected Encounter This section includes the information on record at [place] for the Encounter. Date/Time Encounter Type Encounter Description Reason Pro vider Source Dec 08, 2023 12:00 PM Outpatient Encounter COMMUNITY CARE CONSULT IHE Encounter Template Text not used by [facility] Plan of Treatment: Future Appointments (+ 6 months) and Future Tests (+/- 45 days) The Plan of Treatment section includes future care activities for the patient from all [place] [facility]. This section includes future appointments and future orders which are active, pending or scheduled. Future Appointments This section includes appointments that were scheduled to occur 6 months from the date of the Encounter, up to a maximum of 20 appointments. The data comes from all [place] treatment facilities. Appointment Date/Time Appointment Type Appointme nt Facility Name Jan 13, 2024 09:30 AM AM[facility]ULATORY - [facility] Feb 03, 2024 02:30 PM [facility]ORY [facility] April 04, 2024 02:30 PM AMBULATORY - REHAB MEDICIN E [facility] Apr 13, 2024 10:00 AM AM[facility] May 09, 2024 09:30 AM [facility] May 09, 2024 10:30 AM AMBULATORY - REHAB MEDICIN E [facility] Encounter Notes: All associated encounter notes This section contains the clinical notes associated to the Encounter. Date/Time Encounter Note(s) Provider Source Dec 08, 2023 12:00 PM NONVA CONSULT: LOCAL TITLE: COMMUNITY CARE-CONSULT RESULT NOTE STANDARD TITLE: NONVA CONSULT DATE OF NOTE: DEC 08, 2023@12:00 ENTRY DATE: APR 19, 2024@06:51:57 AUTHOR: SAMUEL JOSUE EXP COSIGNER: URGENCY: STATUS: COMPLETED VistA Imaging - Scanned Document SCANNED DOCUMENT SIGNATURE NOT REQUIRED Electronically Filed: 04/19/2024 by: SAMUEL UP [facility]
--- OUTSIDE RECORDS SUMMARY | 2024-10-16 13:03 | XMS_ITS ---
Author Name [facility] [place] Address [address] [place] [address] Care Team Providers Care Senior Staff Specialized Employment Name Role Phone KERON NASH Primary Care [...] PART B Sep 07, 2010 PART B [id number] PARTH ANSARI PHEN PATIENT MEDICARE (WNR) MEDICARE (M) PART A Jun 07, 2010 PART A [id number] JULIAPARTH PHEN PATIENT UNICARE INCOME PROTECTIO N (INDEMNIT Y) [place] RE STATE INDEM N Sep 07, 2010 [id number] BLAISE ANSARIPIOTR SPOUSE Selected Encounter This section includes the information on record at [place] for the Encounter. Date/Time Encounter Type Encounter Description Reason Provider Source May 09, 2024 10:30 AM SELF CARE MNGMENT TRAINING OCCUPATIONAL THERAPY ICD-10-CM M25.539 Pain in unspecified wrist RONEL STOVALL Encounter Template Text not used by [facility] Assessments - Encounter Diagnoses This section includes the primary and secondary diagnoses documented for the Encounter. Date/Time Primary/Secondary Diagnosis Diagnosis Name Provider Source Jun 05, 2024 01:16 PM PRIMARY Pain in unspecified wrist SIARONEL Julianna [facility] [place] [facility] Plan of Treatment: Future Appointments (+ 6 months) and Future Tests (+/- 45 days) The Plan of Treatment section includes future care activities for the patient from all [place] [facility]. This section includes future appointments and future [...] 20, 2024 09:00 AM AMBULATORY - MEDICINE [facility] Jul 18, 2024 09:15 AM [facility] Aug 08, 2024 09:00 AM [facility] [place] [facility] [place] [facility] Aug 28, 2024 08:30 AM AM[facility] [place] [facility] Oct 29, 2024 10:00 AM [facility] Radiology Reports: +/- 30 days of [...] the Encounter. The data comes from all [place] treatment facilities. Date/Time Radiology Report Provider Source May 07, 2024 09:01 AM WRIST 3 OR MORE VIEWS(RIGHT): DENISSE ANSARI [id number] -1945 M Exm Date: MAY 07, 2024@09:01 Req Phys: ROGELIO SEN Loc: CWM/SO/PACT 2 (Req'g Loc) Img Loc: [facility]/BUILDING 1 Service: Unknown [facility] , (Case 6 COMPLETE) WRIST 3 OR MORE VIEWS(RIGHT) (RAD Detailed) CPT:01615 Reason for Study: right wrist pain Clinical History: no trauma Report Status: Verified Date Reported: MAY 09, 2024 Date Verified: MAY 09, 2024 Rail Bender E-Sig: Report: WRIST 3 OR MORE VIEWS(RIGHT) Comparison: None. Clinical History: right wrist pain Findings: No acute fracture, dislocation, or significant bony abnormality. Mild narrowing of the radiocarpal joint. Mild degenerative changes of the first carpometacarpal joint. Moderate degenerative changes of the first MCP.. Impression: No acute bony injury. Degenerative changes present READING PHYSICIAN: Adonay Gonzalez M.D. -[phone] 05/09/2024 13:42 PDT [facility] National Teleradiology Program [phone] (For Medical Practitioner Use Only) Attention Patients / Veterans: If you have questions or concerns about these test results, please contact your ordering provider or primary care team. Primary Diagnostic Code: NO ALERT REQUIRED Primary Interpreting Staff: RADIOLOGY,OUTSIDE SERVICE, Staff Physician / RADIOLOGY,OUTSIDE SERVICE [place] CNT [facility] Encounter Notes: All associated encounter notes This section contains the clinical notes associated to the Encounter. Date/Time Encounter Note(s) Provider Source May 09, 2024 10:35 AM OCCUPATIONAL MEDIC INE CONSULT: LOCAL TITLE: CONSULT REPORT/OCCUPATIONAL THERAPY STANDARD TITLE: OCCUPATIONAL MEDICINE CONSULT DATE OF NOTE: MAY 09, 2024@10:35 ENTRY DATE: MAY 09, 2024@10:35:27 AUTHOR: RONEL STOVALL COSIGNER: KERON NASH URGENCY: STATUS: COMPLETED Initial Evaluation date: May Progress Note Date: Treatment #: eval Treatment time: 40 minutes Diagnosis: Pain in unspecified Wrist(ICD-10-CM M25.539) Provider: Tamra OT Treatment Precautions: Patient identified by full name and date of S: Mr. Ansari is a 78 y/o 50% SC male who was referred to OT for R wrist pain. He was seen in the OT clinic on 05/09/2024. PMH: Active problems - Computerized Problem List is the source for the followin. Wrist pain 2. Leukopenia 3. Hypokalemia 4. Asbestosis 5. Hypoxia 6. Impaired Fasting Glucose (SCT 516422877) 7. Interstitial lung disease 8. Exposure to potentially hazardous substance 9. HTN-Hypertension ([facility] [id number]) 10. Hyperlipidemia (SCT 91638801) 11. Factor V Leiden mutation 12. Chronic deep venous thrombosis of lower extremity 13. Sensorineural hearing loss, bilateral 14. Tinnitus (SCT 69371280) 15. Allergic Rhinitis (SCT 28230265) 16. Obstructive sleep apnea KARINA: pt reports it started at least 2 months ago. if he moves the wrist the wrong way, it hurts. he also gets a click in the wrist. Imaging: not read yet Pain Level: 3/10 at rest, increasing to 7/10 at worst Pain Location: volar wrist Aggravating Factors: using the fingers forcefully, opening a jar Alleviating Factors: stabilizing the wrist O: Pt is L hand dominant. 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 He enjoys riding his motorcycle and woodworking, works around the house. Clinical Presentation: severe thenar and first dorsal interosseous atrophy noted R>L squared CMC joint Special Tests: Tinel's over Carpal Tunnel: (-) b/l Compression Test: (+) R only Reverse Phalen's: (-) b/l Grind: (+) for crepitation on R Palpation: ttp throughout R flexor tendons at wrist level ttp throughout thenar musculature/1st dorsal interosseous Clinical Lab Clerk Strength Per Dynamometer: measured in pounds per pressure (norms: age) [R] [L] 1. 49# (norm:80#) 88# (norm:70#) 2. 46# 85# 3. 48# 83# Prehension Strength (pinch meter/pounds per pressure) [R] [L] lat: 12# (norm: 19#) 14# (norm: 19#) 2 pt: 8# (norm: 14#) 9# (norm: 13#) 3 pt: 8# (norm: 18#) 14# (norm: 19#) (+) for pain w/ 2 point and 3 point pinches Sensation: he endorses nocturnal paresthesia's 1x per week. TX: *discussed CMC arthritis and possible CTS. he was interested in splinting as he lives >1 hour away. *measurements obtained for Comfort Cool CMC splint to be delivered to pt's home. He understands to wear during activities that may exacerbate pain. *issued pt R medium wrist cock up splint for use during sleep only. pt able to don/doff I'ly. pt v/u. *discussed referral to physiatry/hand surgery for CSI. pt was amenable to this. 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 He has severe thenar and 1st dorsal interosseous atrophy which may be indicative of peripheral nerve involvement or radicular damage. Despite this, a splint was issued for the pt to wear during sleep. He will also be shipped a CMC splint as he appears to have quite extensive CMC arthritis (via imaging review and positive testing, report was not available at the time of this evaluation). PLAN: no further f/u required at this time. The pt was interested in managing sx's on his own. If he feels he would like to trial tx he will reach out to this magazine writer. Pt is in agreement w/ this POC. GOALS: 1. issue pt splints in order to manage sx's 2. pt will report 50% improvement in sx's since initiating splinting The practitioner's co-signature on this note signifies agreement with plan of care and clinical diagnosis code. /rupinder/ Ronel Stovall, MS OTR/L, CHT Occupational Therapist Signed: 05/09/2024 15:45 /rupinder/ KERON NASH NP NURSE PRACTITIONER Cosigned: 05/14/2024 14:53 RONEL STOVALL [facility]
--- OUTSIDE RECORDS SUMMARY | 2024-10-16 13:03 | XMS_ITS | Encounter Summary ---
Author Name [facility] [place] [facility] [place] Address [address] [place] [address] Care Team Providers Care Collection Agent Name Role Phone KERON NASH Primary Care [...] PART B Sep 07, 2010 PART B [id number] PARTH DUMONT PHEN PATIENT MEDICARE (WNR) MEDICARE (M) PART A Jun 07, 2010 PART A [id number] PARTH DUMONT PHEN PATIENT UNICARE INCOME PROTECTIO N (INDEMNIT Y) [place] RE STATE INDEM N Sep 07, 2010 [id number] BLAISE DUMONT ERPIOTR SPOUSE Selected Encounter This section includes the information on record at [place] for the Encounter. Date/Time Encounter Type Encounter Description Reason Provider Source Feb 03, 2024 02:30 PM OFFICE O/P EST MOD 30 MIN PRIMARY CARE/MEDICINE ICD-10-CM E87.6 Hypokalemia ROGELIO SEN Encounter Template Text not used by [place] Assessments - Encounter Diagnoses This section includes the primary and secondary diagnoses documented for the Encounter. Date/Time Primary/Secondary Diagnosis Diagnosis Name Provider Source Feb 21, 2024 11:38 AM PRIMARY Hypokalemia ROGELIO SEN [facility] Feb 21, 2024 11:38 AM SECONDARY Essential (primary) hypertension ROGELIO SEN [facility] Feb 21, 2024 11:38 AM SECONDARY Sensorineural hearing loss, bilateral ROGELIO SEN [facility] Feb 21, 2024 11:38 AM SECONDARY Tinnitus, unspecified ear ROGELIO SEN DESI Plan of Treatment: Future Appointments (+ 6 months) and Future Tests (+/- 45 days) The Plan of Treatment section includes future care activities for the patient from [facility] [place] [facility]. This section includes future appointments and future orders which are active, pending or scheduled. Future Appointments This section includes appointments that were scheduled to occur 6 months from the date of the Encounter, up to a maximum of 20 appointments. The data comes from all [place] treatment facilities. Appointment Date/Time Appointment Type Appointme nt Facility Name April 04, 2024 02:30 PM [facility] [place] [facility] Apr 13, 2024 10:00 AM AMBULATORY - MEDICINE [facility] May 09, 2024 09:30 AM [facility] [place] [facility] May 09, 2024 10:30 AM AMBULATORY - [place] [facility] [place] [facility] Jun 20, 2024 09:00 AM AMBULATORY - MEDICINE [facility] Jul 18, 2024 09:15 AM [facility] Lab Results: +/- 30 days of the encounter This section includes the Chemistry and Hematology Lab Results on record with [place] for the patient. Radiology Reports and Pathology Reports are provided separately, in subsequent sections. Lab Results This section contains the Chemistry/Hematology Results that were resulted 30 days before or 30 daysafter the date of the Encounter. Date/Time Source Result Type Result - Unit Interpretation Reference Range Comment Jan 13, 2024 10:38 AM [facility] HEMOGLOBIN A1C PANEL Specimen Type: BLOOD Comment: [...] Jan 13, 2024 10:20 AM Reporting Lab: [address] [id number] Performing Lab: [address] [id number] HEMOGLOBIN A1C 5.4 4.0-5.6 Jan 13, 2024 10:38 AM [facility] BASIC METABOLIC PANEL (non-fasting) Spe cimen Type: SERUM No comment entered. Ordering Provider: ROGELIO SNE Report Released Date/Time: Jan 13, 2024 10:20 AM Reporting Lab: [address] [id number] Performing Lab: [address] [id number] UREA NITROGEN 23 mg/dL 7-25 GLUCOSE 106 mg/dL H 65-100 SODIUM 138 mmol/L 135-145 POTASSIUM 3.4 mmol/L L 3.5-5.0 CHLORIDE 98 mmol/L L 100-110 CO2 33 meq/L H 20-30 CREATININE, Serum 0.83 mg/dL 0.50-1.40 eGFR(CKD-EPI 2020) 89 mL/min >60 Jan 13, 2024 10:38 AM [facility] CBC AND DIFF (AUTO) Specimen Type: BLOOD No comment entered. Ordering Provider: ROGELIO SEN Report Released Date/Time: Jan 13, 2024 10:20 AM Reporting Lab: [address] [id number] Performing Lab: [address] [phone] WBC 8.45 10*3/uL 4.50-11.00 RBC 5.13 10*6/uL 4.23-5.66 HGB 15.7 g/dL 12.8-17 HCT 45.7 39.2-50.4 MCV 89.1 fL 82-99 MCHC 34.4 g/dL 30.8-35.1 PLT 220 10*3/uL 140-360 RDW-CV 12.7 12.0-16.0 Lassen, Abs 0.57 10*3/uL 0.30-1.10 MCH 30.6 pg 26.2-32.6 Neut % 64.9 43.7-75.8 Lymph % 25.3 14.0-42.3 Lassen % 6.7 5.1-13.7 Eos % 2.2 0.4-6.8 Baso % 0.5 0.1-2.0 Neut, Abs 5.48 10*3/uL 2.20-7.60 Lymph, Abs 2.14 10*3/uL 1.00-3.20 Eos, Abs 0.19 10*3/uL 0.03-0.44 Baso, Abs 0.04 10*3/uL 0.01-0.13 Immature Gran % 0.4 0.0-0.7 Immature Gran, Abs 0.03 10*3/uL 0.00-0.06 Jan 13, 2024 10:38 AM [facility] HEPATITIS C ANTIBODY (HCV)-ARC Specimen Type: SERUM Comment: Hep C Ab: No HCV antibody detected. If recent infection is suspected or other evidence suggests HCV infection, consider HCV nucleic acid testing Ordering Provider: ROGELIO SEN Report Released Date/Time: Jan 13, 2024 10:29 AM Reporting Lab: [address] [phone] Performing Lab: [address] [phone] HEPATITIS C ANTIBODY NON-REACTIVE NON-REACTIV E Vital Signs: All taken on the encounter date This section contains inpatient and outpatient Vital Signs collected on the date of the Encounter. Date/Time Temperature Pulse Blood Pressure Respiratory Rate SP02 Pain Height Weight Body Mass Index Source Feb 03, 2024 02:25 PM 97.9 63 134/77 18 96 0 74 220.8 28 [place] Social History: Smoking Status (Most current) and Tobacco Use (All prior to encounter date) This section includes the most current, and the historical, smoking and tobacco- related health factors from the [place] facility where the Encounter took place. Current Smoking Status This section includes the most current smoking, or tobacco-related health factor, from the [place] facility where the Encounter took place. Date/Time Current Smoking Status Comment [place] [facility] Jun 06, 2023 02:00 PM VA-TOBACCO NEVER USED [facility] Encounter Notes: All associated encounter notes This section contains the clinical notes associated to the Encounter. Date/Time Encounter Note(s) Provider Source Feb 03, 2024 03:02 PM PHYSICIAN NOTE: LOCAL TITLE: NOTE STANDARD TITLE: PHYSICIAN NOTE DATE OF NOTE: FEB 03, 2024@15:02 ENTRY DATE: FEB 03, 2024@15:02:50 AUTHOR: ROGELIO SEN COSIGNER: URGENCY: STATUS: COMPLETED NOTE Has ADDENDA PRIMARY CARE VISIT DENISSE DUMONT, is a 78 yo WHITE MALE who presents today at the [place] [facility]. TYPE OF VISIT: Face to face CHART REVIEWED, PATIENT EXAMINED. HPI: infreq palp at night no CP can last 5-10 minutes nothing serious did not start KCL supplementation yet c/o chronic SOB will be following up with Pulm K+ 3.2 changed chlorthalidone to the morning and having less Nocturia BP looks good Most Recent labs reviewed and all medications were reconciled during this visit. Service Connection/Rated Disabilities: Service Connected Disabilities with % Eligibility: SERVICE CONNECTED 50% to 100% VERIFIED Total S/C %: 50 TINNITUS 10% S/C IMPAIRED HEARING 40% S/C HISTORY: PERIOD OF SERVICE - FROM Aug TO Aug COMBAT SERVICE INDICATED: [...] Moist oral mucosa. dentition Neck: Supple. FROM. Ext: No cyanosis or clubbing. No gross deformities. Neuro: CN II through XII grossly intact. Normal speech. Normal gait. Integument: Skin warm and dry. No rashes or lesions on visible areas. Psych: Normal mood and affect. Normal judgment. Cooperative with exam, follows commands. ALLERGIES: Patient has answered [facility] PREVENTIVE MEDICINE GOALS Advance Directive Screen AD Dec 07 Pneumococcal Conjugate Vaccine (PCV15/PCDUE NOW Influenza Immunization DUE NOW Medication Reconciliation DUE NOW COVID-19 Immunization DUE NOW Tdap Immunization DUE NOW Herpes Zoster (Shingles) Vaccine Oct 25 RHS Screen DUE NOW ASSESSMENT/PLAN: Active problems - Computerized Problem List is the source for the followin. HTN: controlled on meds continue meds as discussed 2. Hypokalemia- likely due to Chlorthalidone Start KCL 10 MEq 3. Asbestosis- f/u Pulm 12. Sensorineural hearing loss, bilateral- unclear if low potassium can aggravate this hearing aids helping 13. Tinnitus ([facility] [id number])- KCL may help this. review of chart, labs, notes, physical exam and discussion/education of patient. LAB ORDERS FOR NEXT VISIT: NURSING: PLEASE ORDER APPROPRIATE CHRONIC DISEASE LAB ORDERS FOLLOW UP: Return to clinic as noted below and/or sooner PRN UPCOMING APPOINTMENTS: 04/13/2024 10:00 CWM/SO/PACT 2 10/29/2024 10:00 NHM/OPTOMETRY/BORASKI All medications were reconciled during this visit. No barriers noted; patient understands and agrees to current treatment plan. If patient has any questions, concerns or changes in current health status he/she will call or come [facility] to the [facility]. PACT TEAM INSTRUCTIONS: /rupinder/ ROGELIO SEN MD PHYSICIAN Signed: 02/03/2024 15:19 02/03/2024 ADDENDUM STATUS: COMPLETED A/P recheck BMP in 2-3 weeks /jeaneth SEN MD PHYSICIAN Signed: 02/03/2024 15:20 ROGELIO SEN [facility]
--- OUTSIDE RECORDS SUMMARY | 2024-10-16 13:03 | XMS_ITS ---
Author Name [facility] [place] [facility] [place] Address [address] [place] [id number] Care Team Providers Care Art Objects Repairer Name Role Phone KERON NASH Primary [facility] Provider [facility] Insurance Providers: All historical and current [...] PART B Sep 07, 2010 PART B [id number] PARTH DUMONT PHEN PATIENT MEDICARE (WNR) MEDICARE (M) PART A Jun 07, 2010 PART A [id number] JULIAPARTH PHEN PATIENT UNICARE INCOME PROTECTIO N (INDEMNIT Y) [place] RE STATE INDEM N Sep 07, 2010 [id number] 98 BLAISE DUMONT SPOUSE Selected Encounter This section includes the information on record at [place] for the Encounter. Date/Time Encounter Type Encounter Description Reason Pro vider Source Jun 04, 2024 11:16 AM Outpatient Encounter TELEPHONE TRIAGE IHE Encounter Template Text not used by [place] Plan of Treatment: Future Appointments (+ 6 months) and Future Tests (+/- 45 days) The Plan of Treatment section includes future care activities for the patient from all [place] [facility]. This section includes future appointments and future orders which are active, pending or scheduled. Future Appointments This section includes appointments that were scheduled to occur 6 months from the date of the Encounter, up to a maximum of 20 appointments. The data comes from all [facility] facilities. Appointment Date/Time Appointment Type Appointme nt Facility Name Jun 20, 2024 09:00 AM AMBULATORY - MEDICINE [facility] Jul 18, 2024 09:15 AM AMBULATORY [place] [facility] Aug 08, 2024 09:00 AM AMBULATORY [place]ICINE [place] [facility] Aug 28, 2024 08:30 AM AMBULATORY - [place] [facility] [place] [facility] Oct 29, 2024 10:00 AM AM[facility]ULAT[facility] - [facility]ICINE [facility] [place] [place] [facility] Radiology Reports: +/- 30 days of the [...] the Encounter. The data comes from all [facility]. Date/Time Radiology Report Provider Source May 07, 2024 09:01 AM WRIST 3 OR MORE VIEWS(RIGHT): DENISSE DUMONT [id number] -1945 M Ex Date: MAY 07, 2024@09:01 Req Phys: ROGELIO SEN Loc: CWM/SO/PACT 2 (Req'g Loc) g Loc: [facility] 1 Service: [facility] [place] [facility] , (Case 6 COMPLETE) WRIST 3 OR MORE VIEWS(RIGHT) (RAD Detailed) CPT:83095 Reason for Study: right wrist pain Clinical History: no trauma Report Status: Verified Date Reported: MAY 09, 2024 Date Verified: MAY 09, 2024 Medical Doctor Md E-Sig: Report: WRIST 3 OR MORE VIEWS(RIGHT) Comparison: None. Clinical History: right wrist pain Findings: No acute fracture, dislocation, or significant bony abnormality. Mild narrowing of the radiocarpal joint. Mild degenerative changes of the first carpometacarpal joint. Moderate degenerative changes of the first MCP.. Impression: No acute bony injury. Degenerative changes present READING PHYSICIAN: Adonay Gonzalez M.D. -[id number] 05/09/2024 13:42 PDT [facility] National Teleradiology Program [phone] (For Medical Practitioner Use Only) Attention Patients / Veterans: If you have questions or concerns about these test results, please contact your ordering provider or primary care team. Primary Diagnostic Code: NO ALERT REQUIRED Primary Interpreting Staff: RADIOLOGY,OUTSIDE SERVICE, Staff Physician / RADIOLOGY,OUTSIDE SERVICE [facility] Encounter Notes: All associated encounter notes This section contains the clinical notes associated to the Encounter. Date/Time Encounter Note(s) Provider Source Jun 04, 2024 11:16 AM RN PROGRESS NOTE: LOCAL TITLE: [facility]: CLINICAL TRIAGE STANDARD TITLE: RN PROGRESS NOTE DATE OF NOTE: JUN 04, 2024@11:16:51 ENTRY DATE: JUN 04, 2024@11:16:51 AUTHOR: FOREIGN TAYLOR COSIGNER: URGENCY: STATUS: COMPLETED Patient Demographics Patient Name: DENISSE DUMONT Patient Primary [address]: [address] [place] [address] Patient Primary Phone: [phone] Patient : 1945 Patient Age: 78 Current Location: HOME Call Back Number: [phone] Caller/Recipient Relation to Patient: Self Emergency Contact: LESTER DUMONT Triage Summary Conducted triage/discussed symptoms Pain Score: 5 (Moderate to Severe Pain) Utilized the Triage Tool: Yes Chief Complaint: Knee Pain (one knee) System WHEN: Now Nurse's Recommendation / WHEN: Now System WHERE: Emergency department Nurse's Recommendation / WHERE: ED Other Patient Disposition Patient/Caregiver agrees to plan of care: Yes Patient WHERE: ED Other Other - Patient Where Disposition: [facility] Patient WHEN: Now Patient is Urgent or Emergent Nursing Plan and Disposition Referred patient to higher level of care Instructed to go to Emergency Room (ER) Nurse Summary Nurse Summary: Vet reports 2 weeks of right knee pain without injury with right leg edema. Clinical Contact Center Codes Clinic/Location: [facility] PHONE [facility] RN Decision Support System Output: Triage Complete Triage Date: 06/04/2024, 11:14 AM Triage Note: Decision Support Tool Used: [facility] Phone Triage 04 Jun 2024 15:12:39 +0000 [facility] 78 y/o Male Results CC: Knee Pain (one knee) Software suggested: Now Software suggested follow-up location: Emergency department Values and Measures Duration of CC: 2 Weeks Positive Responses HPI: leg swelling, localized below the painful knee PMH: DVT VS: pulse not taken VS: respiratory rate not taken Negative Responses Denies: HPI: chest pain, pleuritic Denies: HPI: dyspnea, new or worsening Denies: HPI: hemoptysis Denies: HPI: knee injury, within past 2 days Denies: HPI: skin erythema, knee Denies: PMH: pulmonary embolism /es/ FOREIGN TAYLOR RN, MSN Signed: 06/04/2024 11:17 Receipt Acknowledged By: 06/06/2024 13:28 /es/ SATINDER COON LPN LICENSED PRACTICAL NURSE 06/04/2024 11:46 /es/ CARLY JENKINS RN REGISTERED NURSE [facility] [place] [facility]
--- OUTSIDE RECORDS SUMMARY | 2024-10-16 13:04 | XMS_ITS | Encounter Summary ---
Author Name [facility] [place] Address [address] [place] [address] Care Team Providers Care Fiberglass Boat Builder Name Role Phone KERON NASH Primary Care [...] PART B Sep 07, 2010 PART B [id number] PARTH DUMONT PHEN PATIENT MEDICARE (WNR) MEDICARE (M) PART A Jun 07, 2010 PART A [id number] JULIAPARTH PHEN PATIENT UNICARE INCOME PROTECTIO N (INDEMNIT Y) [place] RE STATE INDEM N Sep 07, 2010 [id number] 98 BLAISE DUMONT ERPIOTR SPOUSE Selected Encounter This section includes the information on record at [place] for the Encounter. Date/Time Encounter Type Encounter Description Reason Pro vider Source Jun 12, 2024 03:15 PM Outpatient Encounter PRIMARY CARE/MEDICINE IHE Encounter Template Text not used by [place] Plan of Treatment: Future Appointments (+ 6 months) and Future Tests (+/- 45 days) The Plan of Treatment section includes future care activities for the patient [facility] [place] [facility]. This section includes future appointments and future orders which are active, pending or scheduled. Future Appointments This section includes appointments that were scheduled to occur 6 months from the date of the Encounter, up to a maximum of 20 appointments. The data comes from all [place] treatment facilities. Appointment Date/Time Appointment Type Appointme nt Facility Name Jun 20, 2024 09:00 AM AMBULATORY - MEDICINE [facility] Jul 18, 2024 09:15 AM AM[place]UL[place] [facility] Aug 08, 2024 09:00 AM AMBULATORY - [place]ICINE [place] [facility] Aug 28, 2024 08:30 AM AMBULATORY - [place]ICIN [place] [facility] [facility] Oct 29, 2024 10:00 AM [facility] [place] [facility] Encounter Notes: All associated encounter notes This section contains the clinical notes associated to the Encounter. 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 He reports several days ago he was working on the ground then got up and a few minutes later had pain in his right knee subsequently he has developed pain lower in the right calf. He has no swelling or redness. He denies any fever sore throat cough congestion chest pain or shortness of breath or any abdominal pain nausea vomiting diarrhea or dysuria he denies other leg pain or swelling he has chronic venous stasis changes of both legs unchanged from baseline with no numbness or weakness in the arms or legs. Pain is worse on palpation.. Physical Examination Vital Signs VITAL SIGNS SECTION 06/04/2024 12:12 EDT Temperature 98.3 DegF Temperature Route Temporal Pulse Rate 63 bpm Respiratory Rate 16 br/min Systolic Blood Pressure 165 mm Hg H Diastolic Blood Pressure 69 mm Hg Blood pressure sites Arm, right Mean Arterial Pressure 101 mm Hg Pulse Pressure 96 mm Hg Oxygen Saturation 95 % Mode of Delivery (Oxygen) Room air . General: Alert, no acute distress. Skin: Warm, dry, no rash. Head: Normocephalic, atraumatic. Neck: Supple, trachea midline. Eye: Normal conjunctiva. Ears, nose, mouth and throat: Oral mucosa moist. Cardiovascular: Regular rate and rhythm, No murmur, Normal peripheral perfusion, No edema. Respiratory: Lungs are clear to auscultation, respirations are non-labored, breath sounds are equal. Musculoskeletal: Normal ROM, no swelling, Tenderness on palpation of the medial and lateral posterior right calf with no erythema swelling warmth crepitus or fluctuance and no visible trauma. No other tenderness on palpation or range of motion of the bilateral lower extremities.. Chest wall Gastrointestinal: Soft, Nontender, Non distended. Neurological: Motor strength: Distal right upper extremity 5 /5, distal left upper extremity 5 /5, right lower extremity 5 /5, left lower extremity 5 /5, Sensory: Right upper extremity, left upper extremity, right lower extremity, left lower extremity, normal. Psychiatric: Appropriate mood & affect. Medical Decision Making Rationale: The patient is a 78-year-old male presenting to the emergency department with pain in his right calf that was initially in his right knee after getting up several days ago. Recent x-ray did show a effusion. On exam there is tenderness on palpation of the right calf with no swelling or erythema. He is neurovascular intact distally in the right lower extremity. Differential diagnosis includes: DVT, degenerative changes, strain/sprain X-ray shows knee effusion similar to previous. 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 INR was 2.2.. Impression and Plan Diagnosis Bakers cyst Plan Condition: Improved. Disposition: Discharged: time 06/04/2024 16:06:00. Patient was given the following educational materials: Prescription Given this visit:No new prescriptions during this visit. Patient Instructions Given:DIAGNOSIS: Delgado's cyst TEST RESULTS: X-ray showed effusion, INR is 2.2, ultrasound showed Delgado's cyst with no blood clot Your specific PATIENT CARE INSTRUCTIONS (what to do / when to return): Follow-up with your regular doctor and/or the specialist provided to discuss further testing and treatment. Return to the emergency department new or worsening pain redness swelling fever numbness or weakness or chest pain or shortness of breath. MEDICATIONS (what medications you should start (or stop) taking): None Education Given:Marco Antonio Gregory Patient Education - Delgado's Cyst Patient Follow-up:Added Follow Up Time Frame Comments [facility] 2 Days . Counseled: I discussed the diagnosis and treatment plan with the patient, they expressed understanding and agreement with the plan. /rupinder/ CARLY JENKINS RN REGISTERED NURSE Signed: 06/12/2024 15:16 CARLY JENKINS [facility]
--- OUTSIDE RECORDS SUMMARY | 2024-10-16 13:04 | XMS_ITS ---
Author Name [facility] [place] Address [address] [place] [address] Care Team Providers Care Ecologist Technician Name Role Phone KERON NASH Primary Care [...] PART B Sep 07, 2010 PART B [id number] [phone] PARTH DUMONT PHEN PATIENT MEDICARE (WNR) MEDICARE (M) PART A Jun 07, 2010 PART A [id number] JULIAPARTH PHEN PATIENT UNICARE INCOME PROTECTIO N (INDEMNIT Y) [place] RE STATE INDEM N Sep 07, 2010 [id number] BLAISE DUMONT ERPIOTR SPOUSE Selected Encounter This section includes the information on record at [place] for the Encounter. Date/Time Encounter Type Encounter Description Reason Provider Source May 11, 2024 01:29 PM Outpatient Encounter PROSTHETICS/ORTHOTI CS KERON NASH Julianna Encounter Template Text not used by [place] Plan of Treatment: Future Appointments (+ 6 months) and Future Tests (+/- 45 days) The Plan of Treatment section includes future care activities for the patient from all [place] [facility]. This section includes future appointments and future orders which are active, pending or scheduled. Future Appointments This section includes appointments that were scheduled to occur 6 months from the date of the Encounter, up to a maximum of 20 appointments. The data comes from all [facility] facilities. Appointment Date/Time Appointment Type Appointme nt Facility Name Jun 20, 2024 09:00 AM AMBULATORY - MEDICINE [facility] Jul 18, 2024 09:15 AM AMBULATORY - MEDICINE [place] [facility] Aug 08, 2024 09:00 AM AMBULATORY - MEDICINE [facility] [place] [facility] Aug 28, 2024 08:30 AM AMBULATORY - REHAB [place]ICIN [place] [facility] Oct 29, 2024 10:00 AM [facility] Radiology Reports: +/- 30 days of the [...] the Encounter. The data comes from all [facility]. Date/Time Radiology Report Provider Source May 07, 2024 09:01 AM WRIST 3 OR MORE VIEWS(RIGHT): DENISSE DUMONT [id number] -[phone] [facility] Date: MAY 07, 2024@09:01 Req Phys: ROGELIO SEN Loc: CWM/SO/PACT 2 (Req'g Loc) [facility] Loc: [facility] 1 Service: Unknown [facility] , (Case 6 COMPLETE) WRIST 3 OR MORE VIEWS(RIGHT) (RAD Detailed) CPT:09490 Reason for Study: right wrist pain Clinical History: no trauma Report Status: Verified Date Reported: MAY 09, 2024 Date Verified: MAY 09, 2024 Auto Research Engineer E-Sig: Report: WRIST 3 OR MORE VIEWS(RIGHT) Comparison: None. Clinical History: right wrist pain Findings: No acute fracture, dislocation, or significant bony abnormality. Mild narrowing of the radiocarpal joint. Mild degenerative changes of the first carpometacarpal joint. Moderate degenerative changes of the first MCP.. Impression: No acute bony injury. Degenerative changes present READING PHYSICIAN: Adonay Gonzalez M.D. -[id number] 05/09/2024 13:42 PDT [facility] National Teleradiology Program [phone] (For Medical Practitioner Use Only) Attention Patients / Veterans: If you have questions or concerns about these test results, please contact your ordering provider or primary care team. Primary Diagnostic Code: NO ALERT REQUIRED Primary Interpreting Staff: RADIOLOGY,OUTSIDE SERVICE, Staff Physician / RADIOLOGY,OUTSIDE SERVICE [place] [facility]
--- OUTSIDE RECORDS SUMMARY | 2024-10-16 13:04 | XMS_ITS | Encounter Summary ---
Author Name [place] Address [address] [place] [address] Care Team Providers Care Desk Officer Name Role Phone KERON NASH Primary Care Provider [facility] Insurance Providers: All historical and [...] PART B Sep 07, 2010 PART B [id number] PARTH DUMONT PHEN PATIENT MEDICARE (WNR) MEDICARE (M) PART A Jun 07, 2010 PART A [id number] JULIAPARTH PHEN PATIENT UNICARE INCOME PROTECTIO N (INDEMNIT Y) [place] RE STATE INDEM N Sep 07, 2010 [id number] BLASIE DUMONT SPOUSE Selected Encounter This section includes the information on record at [place] for the Encounter. Date/Time Encounter Type Encounter Description Reason Pro vider Source Jun 12, 2024 03:06 PM Outpatient Encounter TELEPHONE TRIAGE IHE Encounter Template Text not used by [facility] Plan of Treatment: Future Appointments (+ 6 months) and Future Tests (+/- 45 days) The Plan of Treatment section includes future care activities for the patient from all [place] [facility]. This section includes future appointments and future orders which are active, pending or scheduled. Future Appointments This section includes appointments that were scheduled to occur 6 months from the date of the Encounter, up to a maximum of 20 appointments. The data comes from all [place] treatment facilities. Appointment Date/Time Appointment Type Appointme nt Facility Name Jun 20, 2024 09:00 AM [facility] Jul 18, 2024 09:15 AM AMBULATORY - MEDICINE [place] [facility] Aug 08, 2024 09:00 AM AMBULATORY - MEDICINE [place] [facility] Aug 28, 2024 08:30 AM AMBULATORY - REHAB MEDICIN E [place] [facility] Oct 29, 2024 10:00 AM AMBULATORY - MEDICINE [place] [facility] Encounter Notes: All associated encounter notes This section contains the clinical notes associated to the Encounter. Date/Time Encounter Note(s) Provider Source Jun 12, 2024 03:06 PM RN PROGRESS NOTE: LOCAL TITLE: CCC: CLINICAL TRIAGE STANDARD TITLE: RN PROGRESS NOTE DATE OF NOTE: JUN 12, 2024@15:06:11 ENTRY DATE: JUN 12, 2024@15:06:11 AUTHOR: MARICEL HERBERT EXP COSIGNER: URGENCY: STATUS: COMPLETED CCC: CLINICAL TRIAGE Has ADDENDA Patient Demographics Patient Name: DENISSE DUMONT Patient Primary Address: [address] [place] [address] Patient Primary Phone: [phone] Patient : 1945 Patient Age: 79 Caller/Recipient Relation to Patient: Self Emergency Contact: LESTER JULIA Triage Summary Conducted triage/discussed symptoms Utilized the Triage Tool: No Patient Disposition Patient/Caregiver agrees to plan of care: Yes Patient WHERE: Clinic/[facility] Nursing Plan and Disposition Unable to assist patient Comments: PT DENIES NEW OR WORSE SYMPTOMS. Other course(s) of action Generated msg to PACT/Provider Provided guidance for worsening symptoms: *Caller/Patient* advised to call facilities [place] Clinical Contact Center or seek immediate medical attention for new or worsening symptoms Nurse Summary Nurse Summary: PT STATES HE HAS RETURN OF RIGHT KNEE PAIN AND SWELLING, HE STATES HE HAS BEEN TO THE ED X 2 FOR IT AND STATES HE IS FOLLOWING UP WITH PCP, STATES THE ED/UCC REFERRED HIM TO FOLLOWUP WITH AN ORTHOPEDIC. PT HAS NOT FOLLOWED UP WITH ORTHO DIRECTED, HE STATES HE MADE AN ATTEMPT TO F/U WITH CIVILIAN PROVIDER AND WAS OFFERED NO APPT SOON. PT STATES LAST EVALUATION IN THE ED FOR SAME WAS 06/04 AT [facility] IN [facility]. PT USING ASPIRIN DIRECTED, ATTEMPTING TO GET ESTABLISHED WITH ORTHO. PT DECLINES NEED FOR TRIAGE. PT AWARE TO RETURN TO THE ED IF ANY WORSENING SYMPTOMS OR DISTRESS. FYI TO PACT FOR FURTHER FOLLOWUP. Non-Triage/Non-Symptom Call Provided patient w/ administrative Info Generated msg to PACT/Provider-NonTriage Clinical Contact Center Codes Clinic/Location: V1 CWM PHONE [facility] RN /rupinder/ MARICEL VICENTE 1 [facility] RN Signed: 06/12/2024 15:06 Receipt Acknowledged By: 06/12/2024 15:22 /es/ SATINDER COON LPN LICENSED PRACTICAL NURSE 06/12/2024 15:20 /rupinder/ CARLY JENKINS RN REGISTERED NURSE 06/12/2024 ADDENDUM STATUS: COMPLETED Consult placed and awaiting PCP's signature. /rupinder/ CARLY JENKINS RN REGISTERED NURSE Signed: 06/12/2024 15:20 [facility] HER[facility]ERT [facility]
--- OUTSIDE RECORDS SUMMARY | 2024-10-16 13:05 | XMS_ITS | Encounter Summary ---
Author Name [facility] [place] Organization [place] Address [address] [place] [address] Care Team Providers Care Gallery Or Museum Guide Name Role Phone KERON NASH Primary Care [...] PART B Sep 07, 2010 PART B [id number] PARTH DUMONT PHEN PATIENT MEDICARE (WNR) MEDICARE (M) PART A Jun 07, 2010 PART A [id number] JULIAPARTH PHEN PATIENT UNICARE INCOME PROTECTIO N (INDEMNIT Y) [place] RE STATE INDEM N Sep 07, 2010 [id number] BLAISE DUMONT ERPIOTR SPOUSE Selected Encounter This section includes the information on record at [place] for the Encounter. Date/Time Encounter Type Encounter Description Reason Pro vider Source Jun 20, 2024 09:09 AM Outpatient Encounter PRIMARY CARE/MEDICINE IHE Encounter Template Text not used by [facility] Plan of Treatment: Future Appointments (+ 6 months) and Future Tests (+/- 45 days) The Plan of Treatment section includes future care activities for the patient from all [place] [facility]. This section includes future appointments and future orders which are active, pending or scheduled. Future Appointments This section includes appointments that were scheduled to occur 6 months from the date of the Encounter, up to a maximum of 20 appointments. The data comes from all [place] treatment facilities. Appointment Date/Time Appointment Type Appointme nt Facility Name Jul 18, 2024 09:15 AM AMBULATORY - MEDICINE [facility] Aug 08, 2024 09:00 AM [facility] Aug 28, 2024 08:30 AM [facility] Oct 29, 2024 10:00 AM AMBULATORY - MEDICINE [facility] Dec 18, 2024 09:00 AM AMBULATORY - MEDICINE [facility] Social History: Smoking Status (Most current) and Tobacco Use (All prior to encounter date) This section includes the most current, and the historical, smoking and tobacco- related health factors from the [place] facility where the Encounter took place. Current Smoking Status This section includes the most current smoking, or tobacco-related health factor, from the [place] facility where the Encounter took place. Date/Time Current Smoking Status Comment Hudson aragon Jun 20, 2024 09:09 AM PA-TOBACCO NEVER USED [facility] Encounter Notes: All associated encounter notes This section contains the clinical notes associated to the Encounter. Date/Time Encounter Note(s) Provider Source Jun 20, 2024 09:09 AM PREVENTIVE MEDICIN E NURSING NOTE: LOCAL TITLE: CLINICAL REMINDERS/NURSING STANDARD TITLE: PREVENTIVE MEDICINE NURSING NOTE DATE OF NOTE: JUN 20, 2024@09:09 ENTRY DATE: JUN 20, 2024@09:09:36 AUTHOR: BELL CHARLES EXP COSIGNER: URGENCY: STATUS: COMPLETED Advance Directive Screen MH AD: Patient does not have a completed advance directive on file at any facility, [facility] or outside. S/he is not interested in completing one at this time. The patient received education about Advance Directives and written notification of his/her rights. Suicide Screen: C-SSRS Screening Letcher Suicide Severity Rating Scale (C-SSRS) screener 1. Over the past month, have you wished you were or wished you could go to sleep and not wake up? No 2. Over the past month, have you had any actual thoughts of killing yourself? No 3. Over the past month, have you been thinking about how you might do this? Response not required due to responses to other questions. 4. Over the past month, have you had these thoughts and had some intention of acting on them? Response not required due to responses to other questions. 5. Over the past month, have you started to work out or worked out the details of how to kill yourself? Response not required due to responses to other questions. 6. If yes, at any time in the past month did you intend to carry out this plan? Response not required due to responses to other questions. 7. In your lifetime, have you ever done anything, started to do anything, or prepared to do anything to end your life (for example, collected pills, obtained a gun, gave away valuables, went to the roof but didn't jump)? No 8. If YES, was this within the past 3 months? Response not required due to responses to other questions. Homelessness/Food Insecurity Screen: In the past 2 months, have you been living in stable housing that you own, rent, or stay in as part of a household? Yes - Living in stable housing. Are you worried or concerned that in the next 2 months you may NOT have stable housing that you own, rent, or stay in as part of a household? No - Not worried about housing near future The reports the following: Within the past 12 months, you worried whether your food would run out before you got money to buy more. Never true Within the past 12 months, the food you bought just didn't last and you didn't have money to get more. Never true Depression Screening: Perform PHQ-2 A PHQ-2 screen was performed. The score was 0 which is a negative screen for depression. Over the past two weeks, how often have you been bothered by the following problems? 1. Little interest or pleasure in doing things Not at all 2. Feeling down, depressed, or hopeless Not at all Falls & Incontinence Screen: Falls Screen: During the past 12 months, did the patient report any falls? 4. No falls within the past year. Incontinence Screen: During the past 12 months, has the patient has any characteristics of incontinence (ability, voiding, leakage, etc.)? No incontinence. HIV Screening: Patient has been offered HIV testing and has declined. I have explained that HIV testing is recommended for all adults, even if all risk factors are absent. The patient was educated on the risk of delayed screening. Pneumococcal Conjugate Vaccine (PCV15/PCV20): Refuses PCV vaccine Immunization: PNEUMOCOCCAL CONJUGATE, UNSPECIFIED FORMULATION Refusal Reason: PATIENT DECISION Patient refuses all immunization(s) in the PneumoPCV group Date Documented: 06/20/24 09:12 Tobacco Use Screening: The patient has never used tobacco. Influenza Immunization: No influenza vaccination was received during the recent influenza season. Alcohol Use Screen (AUDIT-C): Alcohol Screen: SCREEN FOR ALCOHOL (AUDIT-C) An alcohol screening test (AUDIT-C) was negative (score=1). 1. How often did you have a drink containing alcohol in the past year? Consider a drink to be a 12 ounce can or bottle of regular beer, 8 ounces of malt liquor, a 5 ounce glass of table wine, or a 1.5 ounce shot of liquor (like scotch, gin, or vodka). Monthly or less 2. How many drinks containing alcohol did you have on a typical day when you were drinking in the past year? Zero drinks 3. How often did you have six or more drinks on one occasion in the past year? Never COVID-19 Immunization: Refused Moderna Monovalent COVID-19 vaccine Immunization: COVID-19 (MODERNA), MRNA, LNP-S, PF, 50 MCG/0.5 ML (AGES 12+ YEARS) Refusal Reason: PATIENT DECISION Patient refuses all immunization(s) in the COVID-19 group Date Documented: 06/20/24 09:13 Tdap Immunization: The patient declines to receive the recommended dose of Tdap vaccine. Immunization: TDAP Refusal Reason: PATIENT DECISION Patient refuses all immunization(s) in the TDAP group Date Documented: 06/20/24 09:13 Herpes Zoster (Shingles) Vaccine: The patient declines to receive the recommended dose of zoster (shingles) vaccine. Immunization: ZOSTER RECOMBINANT Refusal Reason: PATIENT DECISION Patient refuses all immunization(s) in the ZOSTER group Date Documented: 06/20/24 09:13 Sexual Orientation: The patient thinks of their sexual orientation as: Straight or Heterosexual RHS Screen: RHS Screen Session Format: Face to Face Environmental Check Upon inquiry, the individual reports that the environment is safe to proceed. Informed Consent to Screen and Document The individual consents to proceed with screening. The individual consents to documentation of responses. PRIMARY SCREEN: In the past 12 months, how often did a current or former intimate partner (e.g., boyfriend, girlfriend, , , sexual partner): 1. Scream or curse at you Never 2. Insult or talk down to you Never 3. Threaten you with harm Never 4. Physically hurt you Never 5. Force or pressure you to have sexual contact against your will, or when you were unable to say no Never ?? The HITS tool (items 1-4 above) is [place] copyright protected by Musa Driver MD, and the user has full rights to use it throughout the [place] system. PRIMARY SCREEN RESULT: The Primary Screen is NEGATIVE. The individual answered never to all forms of IPV above (i.e., answered never to all 5 items) The individual accepts education and/or resources: Yes - Offered verbal universal education about IPV EDUCATION: The individual indicated readiness to learn. Education offered during this session as noted above. The individual indicated understanding by asking relevant questions and making appropriate comments. No barriers to learning were observed or identified. /rupinder/ ADY CHARLES LPN LPN Signed: 06/20/2024 09:14 ADY CHARLES [place]
--- OUTSIDE RECORDS SUMMARY | 2024-10-16 13:07 | XMS_ITS | Patient Health Record ---
Author Organization [facility] Address [address] [address] Care Team Providers Care Pile Driving Supervisor Name Role Phone Travis Limon Primary Care Provider JASON Martinez Unavailable [phone] Reason For Referral No Information Medications Medication SIG (Take, Route, Frequency, Duration) Notes Start Date End Date Status Atorvastatin Calcium 20 MG 1 tablet Oral ly Once a day Active Warfarin Sodium 5 MG 1 tablet Orally Onc e a day Active Tamsulosin HCl 0.4 MG 1 capsule Orally O nce a day Active Multivitamin Orally Active Zetia 10 MG 1 tablet Orally Once a day Active Citalopram Hydrobromide 20 MG 1 tablet Orally Once a day Active Chlorthalidone 25 MG 1 tablet in the mor roxanne with food Orally Once a day Active Celecoxib 200 MG 1 capsule with food Orally Twice a day Active Social History Tobacco Use: Social History Observation Description Date Details (start date - stop date) Never Smoker NA - NA Tobacco Use/Smoking Question Answer Notes Are you a nonsmoker Tobacco use other than smoking: Question Answer Notes Are you an other tobacco user? No Section Notes: Lives at home with . 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 Occasional ETOH. Lives at home with . 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 Occasional ETOH. Lives at home with . 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 Occasional ETOH. Lives at home with . 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 Occasional ETOH. Lives at home with . 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 Occasional ETOH. Lives at home with . 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 Occasional ETOH. Lives at home with . 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 Occasional ETOH. Lives at home with . 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 Occasional ETOH. Lives at home with . 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 Occasional ETOH. Problems Problem Type SNOMED Code ICD Code Onset Dates Problem Status W/U Status Risk Notes Problem Hypokalemia (63159071) Hypokalemia (E87.6) Active confirmed Problem Central sleep apnoea syndrome (38807177) Central sleep apnea in conditions classified elsewhere (G47.37) Active confirmed Problem Myasthenia gravis without exacerbation (82574149997424) Myasthenia gravis without (acute) exacerbation (G70.00) Active confirmed Problem Obstructive sleep apnea syndrome (42064050) Sleep apnea in adult (G47.33) Active confirmed Problem Hypertension (23920071) Hypertension (I10) Active confirmed Problem Anxiety disorder (824350207) Anxiety disorder (F41.9) Active confirmed Problem Hypercholesterolemia (20890878) Hypercholesterolemia (E78.00) Active confirmed Plan Of Treatment No Information Insurance Providers Payer Name Payer Address Payer Phone Subscriber Number Group Number Insured Name Patient Relationship to Insured Coverage Start Date Coverage End Date MEDICARE [address] [place], [place] [id number] DENISSE DUMONT Self - patient is the insured [employer] [address] [place], [place] [id number] DENISSE DUMONT Self - patient is the insured Medical (General) History Medical History History ICD Code Myasthenia gravis Dx'd 2012 Anxiety disorder Hypokalemia Hypercholesterolemia Hypertension sleep apnea on CPAP Surgical History Surgery Date(Month/Year) Bilateral Knee replacements Hospitalization History Reason Date(Month/Year) Surgery Related
--- OUTSIDE RECORDS SUMMARY | 2024-10-16 13:07 | XMS_ITS | Encounter Summary ---
Author Name [facility] Address [address] [place] [address] Care Team Providers Care Solar Maintenance Technician Name Role Phone KERON NASH Primary [...] PART B Sep 07, 2010 PART B [id number] [place] DUOMNT PHEN PATIENT MEDICARE (WNR) MEDICARE (M) PART A Jun 07, 2010 PART A [id number] JULIAPARTH PHEN PATIENT UNICARE INCOME PROTECTIO N (INDEMNIT Y) [place] RE STATE INDEM N Sep 07, 2010 [id number] BLAISE DUMONTPIOTR SPOUSE Selected Encounter This section includes the information on record at [place] for the Encounter. Date/Time Encounter Type Encounter Description Reason Pro vider Source Sep 05, 2024 11:39 AM Outpatient Encounter [facility] CONSULT I[facility] Encounter [...] Date/Time Appointment Type Appointme nt Facility Name Oct 29, 2024 10:00 AM [facility] Dec 18, 2024 09:00 AM [facility] - MEDICINE [facility] [place] Active, Pending, and Scheduled Orders This section includes a listing of several types of active, pending, and scheduled orders, including clinic medications orders, diagnostic test orders, procedure orders and consult orders; where the start date of the order is 45 days before the date of the Encounter or 45 days after the date of theEncounter. The data comes from all [place] treatment facilities. Test Date/Time Test Type Test Details Facility Name Sep 10, 2024 10:44 AM Consult Order [facility] Cons Nursery Nurse's Choice [facility] Social History: Smoking Status (Most current) and Tobacco Use (All prior to encounter date) This section includes the most current, and the historical, smoking and tobacco- related health factors from the [facility] where the [facility]. Current Smoking Status This section includes the most current smoking, or tobacco-related health factor, from the [place] facility where the Encounter took place. Date/Time Current Smoking Status Comment [place] [facility] Jun 20, 2024 09:09 AM VA-TOBACCO NEVER USED [facility] Encounter Notes: All associated encounter notes This section contains the clinical notes associated to the Encounter. Date/Time Encounter Note(s) Provider Source Sep 05, 2024 11:39 AM ADMINISTRATIVE NOTE: LOCAL TITLE: ADMINISTRATIVE NOTE STANDARD TITLE: ADMINISTRATIVE NOTE DATE OF NOTE: SEP 05, 2024@11:39 ENTRY DATE: SEP 05, 2024@11:39:17 AUTHOR: BRIANA GRECO COSIGNER: URGENCY: STATUS: COMPLETED ADMINISTRATIVE NOTE Has ADDENDA Graphics Coordinator received call from [facility] requesting an orthopedic consult for [place]. Please enter a new orthopedic consult for the right knee if appropriate. [facility] [id number] [place] [address] Group /rupinder/ BRIANA GRECO ADVANCED TRANSPORTER DRIVER Signed: 09/05/2024 11:40 Receipt Acknowledged By: 09/13/2024 09:35 /es/ KERON NASH NP NURSE PRACTITIONER 09/10/2024 12:53 /es/ AMY CACERES LPN LPN 09/10/2024 10:31 /rupinder/ CARLY JENKINS RN REGISTERED NURSE 09/10/2024 ADDENDUM STATUS: COMPLETED Consult placed and awaiting PCP's signature. /rupinder/ CARLY JENKINS RN REGISTERED NURSE Signed: 09/10/2024 10:31 BRIANA GRECO [facility]
== END 2024-10-09 11:34 | disposition home or self-care (01) ==
PROVIDERS: PCP Internal Medicine; Visit Provider Orthopaedic Surgery
DX: M25.561 Pain in right knee (principal)
CPT/HCPCS: 99213; G2211

== ENCOUNTER → 2024-10-09 11:02 | Outpatient (BNVA) | payer OTHER, SELFPAY | PROVIDERS: PCP Internal Medicine; Visit Provider Orthopaedic Surgery | DX: M25.561 Pain in right knee (principal) | CPT/HCPCS: 99212 ==

== ENCOUNTER 2025-07-15 11:30 | Outpatient (RCR) | payer OTHER, SELFPAY | END 2025-07-15 16:32 | disposition home or self-care (01) | LOC: HO.WCC 11:30 | PROVIDERS: PCP Internal Medicine; Visit Provider Surgery Surgical Oncology | DX: I87.392 Chronic venous hypertension (idiopathic) with other complications of left lower extremity (principal); I73.9 Peripheral vascular disease, unspecified | CPT/HCPCS: 97597; 99211; 99212; 99214 ==